=== PATIENT | female | born 1950 | race Caucasian/White ===

== ENCOUNTER 2018-09-02 07:38 | Day surgery (SDC) | payer MEDICARE, OTHER ==
[~2018-09-02] VITALS: Ht 170.2 cm; Wt 84.4 kg
[~2018-09-02 07:38] MED LIST: ALENDRONATE SOD70 MG PO; ASPIRIN EC81 MG PO; BIOTIN5000 MCG PO; CALCIUM 1,0001 EACH PO; CALCIUM500 MG PO; CELEBREX200 MG PO; CENTRUM SILVER1 EAC3 PO; DAILY VITAMIN1 EAC2 PO; DESMOPRESSIN A0.2 MG PO; FISH OIL 1,0001 EAC1 PO; GLUCOSAMINE CO1 EAC1 PO; GLUCOSAMINE H1500 MG PO; IPRATROPIUM BRO30 ML NAS; OMEGA 3 FISH O1 EACH PO; PANTOPRAZOLE SO40 MG PO; PHILLIPS' COLO1 EACH PO; PROBIOTIC1 EAC1 PO; PROTONIX40 MG PO; TIMOPTIC10 ML; VAGIFEM10 MCG VAGINAL; VITAMIN D1000 UNI1 PO; VITAMIN D5000 UNIT PO; [UNRECOGNIZED DRUG - OTHER] MISC
--- NOTE | 2018-09-02 09:34 | NUR ---
09/02/18 0934 Sheets,Libby 0920 PT ARRIVED TO PACU ON 3L VIA NC, PT ASLEEP OFF AND ON. PT WAKES TO VERBAL STIMULI. PT DENIES NAUSEA AND PAIN. 929 PT WOKE TO VERBAL STIMULI AND IS REORIENTED TO PACU, PT TALKING TO RN THEN BACK TO SLEEP. RESP EVEN AND UNLABORED AND SNORING NOTED. 933 O2 REMOVED.
--- NOTE | 2018-09-03 06:01 | OR ---
[facility] [address], [place] [address] Signed DATE OF OPERATION: SURGEON: Ileana Rosario MD PREOPERATIVE DIAGNOSES: 1. Personal history of colonic polyps. 2. Diverticulosis. 3. PPH stapled hemorrhoidal pexy. 4. Internal and external hemorrhoids. POSTOPERATIVE DIAGNOSES: 1. Minimal internal hemorrhoids. 2. Anahtby-lz-cxdmjwpv external hemorrhoids. 3. Minimal sigmoid and right diverticulosis. 4. 3 mm polyps x2 at 8 cm. PROCEDURE PERFORMED: Colonoscopy with cold biopsy. ESTIMATED BLOOD LOSS: None. INDICATIONS: Keron is a 68-year-old female, who comes to us for a 5-year followup colonoscopy. She has a personal history of colonic polyps. We know she has diverticulosis along with some minimal internal and external hemorrhoids. She has been through the PPH stapled hemorrhoidal pexy. In the meantime, she is retired and says she is doing great. She has no lower GI complaints. There is no family history of colon cancer or polyps. I gave her a pamphlet on colonoscopy in the office and we reviewed that together along with the risks including, but not limited to gas, bloating, crampy abdominal pain, bleeding, perforation, requiring surgery, and missed diagnosis. We also discussed the need for IV conscious sedation. She had expressed understanding and wished to proceed. DESCRIPTION OF PROCEDURE: Keron was taken into our endoscopy suite and placed in the left lateral decubitus position. She was given IV sedation with 5 mg of Versed and 100 mcg of fentanyl. A digital rectal exam was performed and she does have some minimal to moderate external hemorrhoids. She has good sphincter tone. The adult colonoscope was introduced and advanced all around into the cecum under direct visualization of camera without difficulty. Her prep was quite excellent. The scope was slowly withdrawn. We saw just a few diverticula in the right colon and sigmoid colon. There were few in number Electronically Signed By: ILEANA ROSARIO MD 09/03/18 0601 PATIENT NAME: KERON SILVA OPERATIVE REPORT DATE OF : 50 REPORT #: [id number] PHYSICIAN: ILEANA ROSARIO MD PCP: ALEXI ZARAGOZA REPORT IS CONFIDENTIAL AND NOT TO BE RELEASED WITHOUT AUTHORIZATION [facility] [address], [place] [address] Signed moderate in size and scattered about. Once in the rectum she had just a couple of tiny polyps. We removed the cold biopsy forceps. Upon retroflexion of scope, we can see a circular scar just above the anal canal from the PPH staple hemorrhoidal pexy. The internal hemorrhoids are quite minimal. After this, the gas was suctioned out. The colonoscope was removed. Keron tolerated the procedure quite well. RECOMMENDATIONS: I will see Keron back in my office in 7 to 14 days to review her results. I suspect she will stay on the 5-year rotation. MD ATILIO Elena/NATASHAL /[id number] cc: Alexi Rosario MD Copies: ALEXI ZARAGOZA ANDREW L MD ~ Electronically Signed By: ILEANA ROSARIO MD 09/03/18 0601 PATIENT NAME: KERON SILVA OPERATIVE REPORT DATE OF : 50 REPORT #: [id number] PHYSICIAN: ILEANA ROSARIO MD PCP: ALEXI ZARAGOZA REPORT IS CONFIDENTIAL AND NOT TO BE RELEASED WITHOUT AUTHORIZATION
== END 2018-09-02 10:04 | disposition home or self-care (01) ==
LOC: OPS 07:38 → DS 07:43 → OPS 09:00
PROVIDERS: Colon & Rectal Surgery
PROC: 0DBP8ZZ Excision of Rectum, Via Natural or Artificial Opening Endoscopic (ICD-10-PCS; principal; 2018-09-02 09:00)
DX: Z12.11 Encounter for screening for malignant neoplasm of colon (principal); K62.1 Rectal polyp; K64.8 Other hemorrhoids; K64.4 Residual hemorrhoidal skin tags; K57.30 Diverticulosis of large intestine without perforation or abscess without bleeding; K63.5 Polyp of colon; Z86.010 Personal history of colon polyps; Z79.899 Other long term (current) drug therapy
CPT/HCPCS: 99153; G0500; J2250; J3010; J7120

== ENCOUNTER 2019-11-18 14:22 | Emergency (ER) | payer MEDICARE, OTHER ==
[~2019-11-18] VITALS: Ht 170.2 cm; Wt 81.7 kg
--- OUTSIDE RECORDS SUMMARY | ~2019-11-18 | XMS | Clinical Summary ---
Demographics + + + | Address | [address] | | | [place] [address] | + + + | Home Phone | | + + + | Preferred Language | Unknown | + + + | Marital Status | | + + + | Yazidi Affiliation | Unknown | + + + | Race | White | + + + | Ethnic Group | Not or | + + + Author + + + | Author | [facility] | + + + | Organization | [facility] | + + + | Address | Unknown | + + + | Phone | Unavailable | + + + Support + + + + + | Name | Relationship | Address | Phone | + + + + + | Bruce Moscoso | ECON | [address] | | | | | [place] | | | | | [address] | | + + + + + Care Team Providers + +------+ + | Care Chief Payroll Clerk Name | Role | Phone | + +------+ + | Alvin Alejandre MD | PCP | | + +------+ + Source Comments [facility]NALI is fully live on both [facility] and [facility]Patient.[facility] Allergies + + + + + + | Active Allergy | Reactions | Severity | Noted | Comments | | | | | Date | | + + + + + + | Sulfa (Sulfonamide | Unknown | | 08/21/19 | | | Antibiotics) | | | 18 | | + + + + + + Medications + + + +---------+------+------+-------+ | Medication | Sig | Dispensed | Refills | Star | End | Statu | | | | | | t | Date | s | | | | | | Date | | | + + + +---------+------+------+-------+ | pantoprazole 40 mg | Take 40 mg by mouth | | 3 | 04/1 | | Activ | | oral tablet,delayed | before breakfast. | | | 820 | | e | | release (DR/EC) | | | | 18 | | | + + + +---------+------+------+-------+ | ipratropium 0.03 % | | | 0 | 02/1 | | Activ | | nasal | | | | 320 | | e | | spray,non-aerosol | | | | 18 | | | + + + +---------+------+------+-------+ | timolol once daily | Instill 1 drop into | | 0 | | | Activ | | 0.5 % ophthalmic | the right eye once | | | | | e | | (eye) drops, once | daily. | | | | | | | daily | | | | | | | + + + +---------+------+------+-------+ | celecoxib 200 mg | TK 1 C PO D | | 0 | 06/0 | | Activ | | oral capsule | | | | 5/20 | | e | | | | | | 19 | | | + + + +---------+------+------+-------+ | BIOTIN ORAL | Take by mouth. | | 0 | | | Activ | | | | | | | | e | + + + +---------+------+------+-------+ | MEDICATION | Indications: | | 0 | | | Activ | | HELPIndications: | calcium, fish oil, | | | | | e | | calcium, fish oil, | lutein & zeaxanthin, | | | | | | | lutein & zeaxanthin, | Vitamin D, MV | | | | | | | Vitamin D, MV | | | | | | | + + + +---------+------+------+-------+ Active Problems + + + | Problem | Noted Date | + + + | PCO (posterior capsular opacification), right | 10/14/2018 | + + + + + | Last Assessment & Plan: Likely visually significant and | | primary factor in reduced VA-Can follow up with Dr. 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 | + + + + + | History of vitrectomy | 08/20/2017 | + + + + + | Overview: Hx of -PPV OD 03/26/2016 and -PPV OD with phaco | | 06/11/2016 for macular hole Last Assessment & Plan: Hx of -PPV | | OD 03/26/2016 and -PPV OD with phaco 06/11/2016 for macular | | holeStill with central area of distortion, but good VAHole closed | | on OCT macula todayRecommend observation p reassured excellent | | result with good vision which should continue to improve | + + Family History + + +------+ + | Medical History | Relation | Name | Comments | + + +------+ + | Cataracts | Father | | | + + +------+ + | Heart Disease | Father | | | + + +------+ + | Breast Cancer | Mother | | | + + +------+ + | Cancer | Mother | | | + + +------+ + | Amblyopia | Neg Hx | | | + + +------+ + | Blindness | Neg Hx | | | + + +------+ + | Diabetes | Neg Hx | | | + + +------+ + | Glaucoma | Neg Hx | | | + + +------+ + | Macular degeneration | Neg Hx | | | + + +------+ + | Retinal detachment | Neg Hx | | | + + +------+ + | Retinitis pigmentosa | Neg Hx | | | + + +------+ + | Strabismus | Neg Hx | | | + + +------+ + + +------+--------+ + | Relation | Name | Status | Comments | + +------+--------+ + | Father | | | | + +------+--------+ + | Mother | | | | + +------+--------+ + Social History + +-------+ +--------+------+ | Tobacco Use | Types | Packs/Day | Years | Date | | | | | Used | | + +-------+ +--------+------+ | Never Smoker | | | | | + +-------+ +--------+------+ + +---+---+---+ | Smokeless Tobacco: | | | | | Never Used | | | | + +---+---+---+ + + + | Sex Assigned at | Date Recorded | | | | + + + | Not on file | | + + + + + + + | Job Start Date | Occupation | Industry | + + + + | Not on file | Not on file | Not on file | + + + + + + + + | Travel History | Travel Start | Travel End | + + + + + + | No recent travel history available. | + + Last Filed Vital Signs Not on file Plan of Treatment + + + + + | Health Maintenance | Due Date | Last Done | Comments | + + + + + | Pneumococcal | | | | | vaccination (1 of 2 | 6 | | | | - PCV13) | | | | + + + + + | Influenza (Flu) | | | | | vaccination (#1) | 9 | | | + + + + + Results Not on filefrom Last 3 Months Insurance + +--------+ +--------+ + +--------+ | Payer | Benefi | Subscriber | Effect | Phone | Address | Type | | | t Plan | ID | latonya | | | | | | / | | Dates | | | | | | Group | | | | | | + +--------+ +--------+ + +--------+ | MEDICARE | MEDICA | xxxxxxxxxxx | 07/15/19 | [phone] | [address] | [address] | | | RE A & | | 16-Pre | | [phone] | | | [address] | | sent | | [place] | | | | | | | | [id number] | | + +--------+ +--------+ + +--------+ | [employer]A MEDICARE | MODA | xxxxxxxxx | 04/15/19 | [phone] | [address] | POS | | SUPPLEMENT | MEDICA | | 17-Pre | 4 | [id number] | | | | RE | | sent | | [place], | | | | [place] | | | | [place] [address] | | | | MENT | | | | | | + +--------+ +--------+ + +--------+ + +--------+ +--------+ + + | Guarantor Name | Accoun | Relation to | Date | Phone | Billing Address | | | t Type | Patient | of | | | | | | | | | | + +--------+ +--------+ + + | Darline Moscoso | Person | Self | [birth year] | [address] | | | al/[place] | | 1950 | [phone] | [place] [address] | | | renetta | | | 1 (Home) | | + +--------+ +--------+ + +"
--- OUTSIDE RECORDS SUMMARY | ~2019-11-18 | XMS | Encounter Summary ---
Demographics + + + | Address | [address] | | | [place] [address] | + + + | Home Phone | | + + + | Preferred Language | Unknown | + + + | Marital Status | | + + + | Cheondoism Affiliation | Unknown | + + + | Race | Unknown | + + + | Ethnic Group | Unknown | + + + Author + + + | Author | [facility] | | | and Bhupinderana | + + + | Organization | [facility] | | | and Bhupinderana | + + + | Address | Unknown | + + + | Phone | Unavailable | + + + Support + + + + + | Name | Relationship | Address | Phone | + + + + + | Bruce Moscoso | ALEXANDER | [address] | | | | | [place], [place] | | | | | [address] | | + + + + + Care Team Providers + +------+ + | Care [employer] Professor Name | Role | Phone | + +------+ + | Gray Wesley MD | PCP | | + +------+ + Reason for Visit Auth/Cert +--------+--------+ + + + + | Status | Reason | Specialty | Diagnoses / | Referred By | Referred To | | | | | Procedures | Contact | Contact | +--------+--------+ + + + + | | | | Diagnoses | | Ninoska | | | | | Unilateral | | Samson Warner MD | | | | | 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 | | [address] [place] | | | | | is, right | | [place] | | | | | knee | | [address] | | | | | Procedures | | Phone: | | | | | PA TOTAL | | [phone] | | | | | KNEE | | Fax: | | | | | ARTHROPLASTY | | [phone] | | | | | Right | | | | | | | total knee | | | | | | | arthroplasty | | | +--------+--------+ + + + + Encounter Details +--------+ + + + + | Date | Type | Department | Care Team | Description | +--------+ + + + + | 11/02/ | Anesthesia | [facility] | Hemant Amador, | | | 2019 | Event | [facility] | [address] | | | | | [address] | [place] | | | | | [place] | [id number] | | | | | [address] | | | | | | [phone] | Keenan Gabriel | | | | | | MD Letty [address] | | | | | | [address] | | | | | | [place] [address] | | | | | | [phone] | | | | | | | | +--------+ + + + + Anesthesia Record + + + + + | Procedure Name | Responsible | Anesthesia Start | Anesthesia Stop Time | | | Anesthesiologist | Time | | + + + + + | Right total knee | Hemant Amador MD | 11/03/19 1010 | 11/03/19 1152 | | arthroplasty (Right | | | | | Knee) | | | | + + + + + +----+---+ + + | Da | T | Event | Comment | | te | i | | | | | m | | | | | e | | | +----+---+ + + | 07 | 0 | | | | /2 | 9 | | | | 1/ | 4 | | | | 20 | 0 | | | | 20 | | | | +----+---+ + + | | 0 | An Checkout | Pre-use anesthesia machine/equipment checkout. | | | 9 | | | | | 5 | | | | | 7 | | | +----+---+ + + | | 0 | Out of OR | | | | 9 | Device | | | | 5 | Start | | | | 7 | | | +----+---+ + + | | 0 | Antibiotic | | | | 9 | Given | | | | 5 | | | | | 7 | | | +----+---+ + + | | 0 | Pre-Procedu | | | | 9 | ral Timeout | | | | 5 | Completed | | | | 7 | | | +----+---+ + + | | 0 | Block Start | | | | 9 | | | | | 5 | | | | | 7 | | | +----+---+ + + | | 1 | AN Block | | | | 0 | End | | | | 0 | | | | | 5 | | | +----+---+ + + | | 1 | Out of OR | | | | 0 | Device Stop | | | | 0 | | | | | 5 | | | +----+---+ + + | | 1 | An Start | Reassessment prior to anesthesia induction/procedure. | | | 0 | | | | | 1 | | | | | 0 | | | +----+---+ + + | | 1 | Preoxygenat | | | | 0 | ed | | | | 1 | | | | | 5 | | | +----+---+ + + | | 1 | An | | | | 0 | Induction | | | | 1 | | | | | 7 | | | +----+---+ + + | | 1 | An | | | | 0 | Intubation | | | | 1 | | | | | 8 | | | +----+---+ + + | | 1 | Pre-Procedu | | | | 0 | ral Timeout | | | | 3 | Completed | | | | 3 | | | +----+---+ + + | | 1 | [place] | | | | 0 | 43-degrees | | | | 3 | | | | | 3 | | | +----+---+ + + | | 1 | An Tourn | | | | 0 | Inflated | | | | 3 | | | | | 3 | | | +----+---+ + + | | 1 | First | | | | 0 | Inc/Proc St | | | | 3 | | | | | 3 | | | +----+---+ + + | | 1 | Intra-op | Discussed during handoff of patient care: - Preop evaluation | | | 1 | Handoff | including the problem list with anesthesia concerns - Antibiotic | | | 2 | Note | plan and documentation - Postop plan and pain management - Postop | | | 1 | | orders placed - Narcotic documentation: hydromorphone 1mg handed | | | | | off to Dr. Amador | +----+---+ + + | | 1 | An Tourn | | | | 1 | Deflated | | | | 3 | | | | | 1 | | | +----+---+ + + | | 1 | [place] off | | | | 1 | | | | | 4 | | | | | 2 | | | +----+---+ + + | | 1 | Breathing | | | | 1 | Spontaneous | | | | 4 | ly | | | | 2 | | | +----+---+ + + | | 1 | Extubation/ | | | | 1 | Airway LDA | | | | 4 | Removal | | | | 8 | | | +----+---+ + + | | 1 | an stop | | | | 1 | data | | | | 4 | | | | | 8 | | | +----+---+ + + | | 1 | An Stop | Patient handed off to recovery nurse. | | | 5 | | | | | 2 | | | +----+---+ + + +------+ | Meds | +------+ + + + | Name | Total | + + + | midazolam | 2 mg | + + + | fentaNYL injection (2 mL) | 100 mcg | + + + | ropivacaine 0.5% | 15 mL | + + + | lidocaine 2% | 5 mL | + + + | lidocaine 2% | 85 mg | + + + | propofol (DIPRIVAN) injection | 170 mg | | (bolus) (20 mL) | | + + + | dexamethasone | 10 mg | + + + | ondansetron | 4 mg | + + + | HYDROmorphone | 1 mg | + + + | tranexamic acid | 1,000 mg | + + + | ceFAZolin (ANCEF, KEFZOL) 100 | 2 g | | mg/mL IV Push syringe 2 g | | + + + | lactated ringers (LR) infusion | 1,000 mL | + + + + + | Name | + + | N2O Flow Rate (L/Min) | + + | O2 Flow Rate (L/Min) | + + | Insp O2 | + + | Exp SEV | + + | Air Flow Rate (L/Min) | + + + + | No blood administrations on file. | + + +--------+ + + + | Type | Details | Placement | Removal | +--------+ + + + | Periph | 11/03/19; 908; Right; Distal, | 11/03/19 0909 by | 11/04/19 1315 by | | eral | Posterior (dorsal); Forearm; | Jason Lugo RN | Cecille Obregon RN | | IV | [id number] catheter system; | | | | | 18 gauge; no longer indicated; | | | | | short term use; 11/04/19; 1315 | | | +--------+ + + + | Airway | Placement Date: 11/03/19; | 11/03/19 1018 by Tor | 11/03/19 1148 by Tor | | | Placement Time: 1018 (created via | Letty Gabriel MD | Letty Gabriel MD | | | procedure documentation); Mask | | | | | Ventilation: N/A; Attempts: 1; | | | | | Airway Type: laryngeal mask; | | | | | Size: 3; Trauma: none; Placement | | | | | Check: exhaled CO2 detection | | | | | device; Removal Date: 11/03/19; | | | | | Removal Time: 114; Additional | | | | | Comments: Kyle Rojas - MS4 | | | +--------+ + + + | Wound | 11/03/19; 1042; Incision; Right; | 11/03/19 1042 by | 11/04/19 1315 by | | | knee; Healing; 11/04/19; 1315 | Norma Rooney RN | Cecille Obregon RN | +--------+ + + + documented in this encounter Social History + +-------+ +--------+------+ | Tobacco Use | Types | Packs/Day | Years | Date | | | | | Used | | + +-------+ +--------+------+ | Never Smoker | | | | | + +-------+ +--------+------+ + +---+---+---+ | Smokeless Tobacco: | | | | | Never Used | | | | + +---+---+---+ + + +---------+ + | Alcohol Use | Drinks/Week | oz/Week | Comments | + + +---------+ + | Yes | 1 Glasses of wine | 2.0 | | | | 1 Shots of liquor | | | + + +---------+ + + + + | Sex Assigned at | Date Recorded | | | | + + + | Not on file | | + + + documented as of this encounter Last Filed Vital Signs + +---------+ + + | Vital Sign | Reading | Time Taken | Comments | + +---------+ + + | Blood Pressure | 150/76 | 11/03/2019 10:00 AM | | | | | PDT | | + +---------+ + + | Pulse | - | - | | + +---------+ + + | Temperature | - | - | | + +---------+ + + | Respiratory Rate | - | - | | + +---------+ + + | Oxygen Saturation | 95% | 11/03/2019 10:05 AM | | | | | PDT | | + +---------+ + + | Inhaled Oxygen | - | - | | | Concentration | | | | + +---------+ + + | Weight | - | - | | + +---------+ + + | Height | - | - | | + +---------+ + + | Body Mass Index | - | - | | + +---------+ + + documented in this encounter OR Notes Anesthesia Postprocedure Evaluation - Keenan Gabriel MD - 11/03/2019 3:52 PM PDTForm atting of this note might be different from the original. ANESTHESIA POSTANESTHESIA EVALUATION Darline Moscoso 69 y.o. female 1950 [id number] Procedure(s) Right total knee arthroplasty (Right Knee) Cooperates? Yes Mental Status Performs simple tasks. Respiratory Satisfactory - Airway patent (self maintained). Cardiovascular Satisfactory - Blood pressure and heart rate acceptable Temperature Satisfactory Pain Satisfactory N/V Control Satisfactory Hydration Satisfactory - No signs of dehydration Adverse Events ADVERSE EVENTS: No adverse events Vitals Value Taken Time Temp 36.8 C (98.2 F) 11/03/19 1150 Pulse 69 11/03/19 1345 Resp 16 11/03/19 1315 BP 151/67 11/03/19 1345 Arterial Line BP Arterial Line BP 2 SpO2 96 % 11/03/19 1345 Electronically signed by Keenan Gabriel MD 11/03/2019 3:52 PM PDT [facility] nesthesia Procedure Michael - Keenan Gabriel MD - 11/03/2019 10: 50 AM PDTAssociated Order(s): AirwayAnesthesia Airway Placement 11/03/2019 10:18 AM Preprocedure check: patient identified, oxygen, airway assessed, patient reassessment prior to induction, airway equipment checked and suction Rapid Sequence Induction: no Mask ventilation: N/A Attempts: 1 Airway type: laryngeal mask Size: 3 Route, reference point: center of mouth Tube secured with: adhesive tape Trauma: none Tube placement verification: carbon dioxide detection Performing provider: Keenan Gabriel MD Authorizing provider: Keenan Gabriel MD Comments: Kyle LIMA Please see intraoperative grid for any additional medication documentation. nesthesia Proced ure Notes - Keenan Gabriel MD - 11/03/2019 10:37 AM PDTAssociated Order(s): Nerve Bloc kPerineural Procedure Note 11/03/2019 10:05 AM Nerve block: adductor canal-femoral Laterality: right Continuous block with catheter: No Provider requested procedure: Dr. Xiao Indication: postoperative analgesia Preprocedure check: patient identified, procedure and rescue equipment checked, preevaluati on including airway assessment complete, risks/benefits discussed, consent obtained, timeout performed, reassessment prior to procedure and monitors applied Patient position: supine Preparation: chlorhexidine/isopropyl alcohol, 1% lidocaine infiltration Introducer used: no Local anesthetic infiltration volume in ml: 2 mL Technique: ultrasound Radiology image stored in patient's chart: ultrasound Needle: stimulating Needle size: 22 g Needle length: 4 in Medication administered through: needle Negative findings: no blood aspirated and no paresthesia Total volume of local anesthetic solution administered: 20 mL Attempts: 1 Ease of procedure: easy Comments: SpO2, NBP monitored during procedure and recorded in anesthesia record. Ultrasou nd used to identify femoral artery and femoral nerve. Femoral artery traced distally to mid thigh. Under ultrasound guidance, a 21 gauge needle was inserted and placed in close proxim ity to the branches of the femoral nerve within the adductor canal lateral to the femoral ar margaret. Ultrasound was also used to visualize the spread of the anesthetic in close proximity to the nerves being blocked with needle tip visualized throughout. Local anesthetic was in jected in 5 ml increments within the adductor canal with intermittent negative aspiration an d no paresthesias. The anatomy appeared normal, and there were no apparent abnormal patholog ical findings. A permanent ultrasound image was saved in the patient's record. Please see anesthesia record or flowsheet for vital sign documentation and see anesthesia r ecord or MAR for additional medication documentation. Performing provider: Keenan Gabriel MD Authorizing provider: Keenan Gabriel MD Email Deployment Specialist: Kyle Rojas - MS4 nesthesia Prepro cedure Evaluation - Keenan Gabriel MD - 11/02/2019 1:09 PM PDT ANESTHESIA PREANESTHESIA EVALUATION Darline Moscoso 69 y.o. female 1950 [id number] Procedure(s): Right total knee arthroplasty (Right Knee) Medical,anesthesia, drug, allergy histories reviewed, NPO status verified. ECG reviewed. Labs reviewed. Review of Systems / Med History Anesthesia History (+) PONV.(-) difficult intubation, malignant hyperthermia . Cardiovascular (-) coronary artery disease. . Pulmonary No acute pulmonary concerns. (-) Chronic Obstructive Pulmonary Disease.(+) obstructive sleep apnea.(+) Sleep apnea histo ry/interventions: known and CPAP.(-) asthma. Gastrointestinal/Hepatic (+) hypercholesterolemia. Renal (-) end-stage renal disease. Neuromuscular (+) back pain. Physical Exam Airway MP II, Mouth opening >2 FB. Neck: full ROM, Dental Grossly normal except where noted below. CV Rhythm regular. Rate Normal. (-) murmur. Pulm Clear to auscultation bilaterally. Neuro grossly normal. Anesthesia Plan ASA: 2 Type: General. Induction: Intravenous. Potential problems: None anticipated. Monitors: Standard ASA monitors. Postop Pain Management: Peripheral Nerve Block. Consent statement: Anesthetic plan, alternatives, risks and benefits discussed with patient. infection, nausea , pain, perioperative CV events, respiratory events, sore throat, failed or inadequate block , bleeding, nerve damage Consenting person understands and agrees to proceed. PARQ. Multimodal pain control including PO acetaminophen unless there is an allergy or contraindi cation. PARQ for adductor canal nerve block under ultrasound guidance for post-op pain contr ol as requested by surgeon. Pt agrees to GA/LMA/PNB. . Electronically Signed by: Keenan Gabriel MD ESig date/time: 11/03/2019 9:03 AM PDT documented in jess s encounter Miscellaneous Notes Anesthesia Post-op Handoff - Hemant Amador MD - 11/03/2019 11:51 AM PDTFormatting of thi s note might be different from the original. ANESTHESIA HANDOFF NOTE Darline Moscoso 69 y.o. female 1950 [id number] Right total knee arthroplasty (Right Knee) HANDOFF NOTE Handoff Protocol Used: post-procedure handoff checklist completed The following were completed during the transfer of care: 1. Identification of patient 2. Identification of responsible practitioner (primary service) 3. Discussion of pertinent medical history 4. Discussion of the surgical/procedure course (procedure, reason for surgery, procedure pe rformed) 5. Intraoperative anesthetic management and issues/concerns 6. Expectations/plans for the early post-procedure period 7. Opportunity for questions and acknowledgement of understanding of report from receiving team Patient Location: Phase I Condition: alert and sedated Airway/O2: no supplemental O2 Multimodal analgesia: multimodal analgesia used between 6 hours prior to anesthesia start t o PACU discharge Two or more АЛЕКСАНДР mitigation strategies used: perioperative obstructive sleep apnea intervent ions applied The significant anesthesia concerns and VS in Epic were reviewed with the receiving team. Hemant Amador MD 11/03/2019 11:51 AM PDT [facility] Hmeant Amador MD at 10/14 11:51 AM PDTdocumented in this encounter Plan of Treatment Not on filedocumented as of this encounter Procedures + +--------+ + + + | Procedure Name | Priori | Date/Time | Associated Diagnosis | Comments | | | ty | | | | + +--------+ + + + | ANE AIRWAY NOTE | Routin | 11/03/2019 | | Results for this | | | e | 10:50 AM | | procedure are in the | | | | PDT | | results section. | + +--------+ + + + | ANE NERVE BLOCK | Routin | 11/03/2019 | | Results for this | | CATHETER NOTE | e | 10:37 AM | | procedure are in the | | | | PDT | | results section. | + +--------+ + + + documented in this encounter Results Airway (11/03/2019 10:50 AM PDT) + + + | Narrative | Performed At | + + + | Keenan Gabriel MD 11/03/2019 10:51 AM Anesthesia Airway | | | Placement 11/03/2019 10:18 AM Preprocedure check: patient | | | identified, oxygen, airway assessed, patient reassessment prior to | | | induction, airway equipment checked and suction Rapid Sequence | | | Induction: no Mask ventilation: N/A Attempts: 1 Airway type: | | | laryngeal mask Size: 3 Route, reference point: center of mouth Tube | | | secured with: adhesive tape Trauma: none Tube placement | | | verification: carbon dioxide detection Performing provider: Keenan | | | Letty Gabriel MD Authorizing provider: Keenan Gabriel MD | | | Comments: Kyle Macedo MS4 Please see intraoperative grid | | | for any additional medication documentation. | | + + + Nerve Block (11/03/2019 10:37 AM PDT) + + + | Narrative | Performed At | + + + | Keenan Gabriel MD 11/03/2019 10:51 AM Perineural | | | Procedure Note 11/03/2019 10:05 AM Nerve block: adductor | | | canal-femoral Laterality: right Continuous block with catheter: No | | | Provider requested procedure: Dr. Xiao Indication: postoperative | | | analgesia Preprocedure check: patient identified, procedure and | | | rescue equipment checked, preevaluation including airway assessment | | | complete, risks/benefits discussed, consent obtained, timeout | | | performed, reassessment prior to procedure and monitors applied | | | Patient position: supine Preparation: chlorhexidine/isopropyl | | | alcohol, 1% lidocaine infiltration Introducer used: no Local | | | anesthetic infiltration volume in ml: 2 mL Technique: ultrasound | | | Radiology image stored in patient's chart: ultrasound Needle: | | | stimulating Needle size: 22 g Needle length: 4 in Medication | | | administered through: needle Negative findings: no blood aspirated | | | and no paresthesia Total volume of local anesthetic solution | | | administered: 20 mL Attempts: 1 Ease of procedure: easy | | | Comments: SpO2, NBP monitored during procedure and recorded in | | | anesthesia record. Ultrasound used to identify femoral artery and | | | femoral nerve. Femoral artery traced distally to mid thigh. Under | | | ultrasound guidance, a 21 gauge needle was inserted and placed in | | | close proximity to the branches of the femoral nerve within the | | | adductor canal lateral to the femoral artery. Ultrasound was also | | | used to visualize the spread of the anesthetic in close proximity to | | | the nerves being blocked with needle tip visualized throughout. | | | Local anesthetic was injected in 5 ml increments within the | | | adductor canal with intermittent negative aspiration and no | | | paresthesias. The anatomy appeared normal, and there were no apparent | | | abnormal pathological findings. A permanent ultrasound image was | | | saved in the patient's record. Please see anesthesia | | | record or flowsheet for vital sign documentation and see anesthesia | | | record or MAR for additional medication documentation. | | | Performing provider: Keenan Gabriel MD Authorizing provider: Keenan | | | Letty Gabriel MD Email Deployment Specialist: Kyle Rojas - MS4 | | + + + documented in this encounter Visit Diagnoses Not on filedocumented in this encounter Administered Medications + +--------+ +------+------+------+ | Medication Order | MAR | Action | Dose | Rate | Site | | | Action | Date | | | | + +--------+ +------+------+------+ | ceFAZolin (ANCEF, KEFZOL) 100 | Given | 11/03/19 | 2 g | | | | mg/mL IV Push syringe 2 g 2 g, | | 20 10:25 | | | | | Intravenous, Prior to Incision, | | AM PDT | | | | | Starting [facility] 11/03/19 at 0422, For | | | | | | | 1 dose, Give IV Push over 3-5 | | | | | | | minutes., Pre-op, Indications: | | | | | | | Surgical Prophylaxis | | | | | | + +--------+ +------+------+------+ +---+---+ | | | +---+---+ + +-------+ +-------+---+---+ | dexamethasone (PF) 10 mg/mL | Given | 11/03/19 | 10 mg | | | | injection Intravenous, PRN, | | 20 10:24 | | | | | Starting [facility] 11/03/19 at 1024, | | AM PDT | | | | | Anesthesia Intra-op | | | | | | + +-------+ +-------+---+---+ +---+---+ | | | +---+---+ + +-------+ +--------+---+---+ | fentaNYL (PF) injection | Given | 11/03/19 | 75 mcg | | | | Intravenous, PRN, Starting Sat | | 20 10:33 | | | | | 11/03/19 at 0957, Anesthesia | | AM PDT | | | | | Intra-op | | | | | | + +-------+ +--------+---+---+ +-------+ +--------+---+---+ | Given | 11/03/19 | 25 mcg | | | | | 20 9:57 | | | | | | AM PDT | | | | +-------+ +--------+---+---+ +---+---+ | | | +---+---+ + +-------+ +------+---+---+ | HYDROmorphone (DILAUDID) 2 | Given | 11/03/19 | 1 mg | | | | mg/mL injection Intravenous, | | 20 10:48 | | | | | PRN, Starting Sat11/03/19 at | | AM PDT | | | | | 1048, Anesthesia Intra-op | | | | | | + +-------+ +------+---+---+ +---+---+ | | | +---+---+ + + + +---+---+---+ | lactated ringers (LR) infusion | Continue | 11/03/19 | | | | | at 10-100 mL/hr, Intravenous, | d by | 20 9:57 | | | | | CONTINUOUS, Starting 11/03/19 | Anesthes | AM PDT | | | | | at 0900, TKO. Use this instead of | ia | | | | | | NS unless dialysis patient., | | | | | | | Pre-op | | | | | | + + + +---+---+---+ +---------+ +---+-------+---+ | New Bag | 11/03/19 | | 100 | | | | 20 8:49 | | mL/hr | | | | AM PDT | | | | +---------+ +---+-------+---+ +---+---+ | | | +---+---+ + +-------+ +-------+---+---+ | lidocaine (PF) 2% injection | Given | 11/03/19 | 5 mLs | | | | PERINEURAL, PRN, Starting Tue | | 20 10:05 | | | | | 11/03/19 at 1005, Anesthesia | | AM PDT | | | | | Intra-op | | | | | | + +-------+ +-------+---+---+ +---+---+ | | | +---+---+ + +-------+ +-------+---+---+ | lidocaine (PF) 2% injection | Given | 11/03/19 | 15 mg | | | | Intravenous, PRN, Starting Tue | | 20 10:33 | | | | | 11/03/19 at 1017, Anesthesia | | AM PDT | | | | | Intra-op | | | | | | + +-------+ +-------+---+---+ +-------+ +-------+---+---+ | Given | 11/03/19 | 70 mg | | | | | 20 10:17 | | | | | | AM PDT | | | | +-------+ +-------+---+---+ +---+---+ | | | +---+---+ + +-------+ +------+---+---+ | midazolam (VERSED) 1 mg/mL | Given | 11/03/19 | 2 mg | | | | injection Intravenous, PRN, | | 20 9:57 | | | | | Starting 11/03/19 at 0957, | | AM PDT | | | | | Anesthesia Intra-op | | | | | | + +-------+ +------+---+---+ +---+---+ | | | +---+---+ + +-------+ +------+---+---+ | ondansetron (ZOFRAN) injection | Given | 11/03/19 | 4 mg | | | | Intravenous, PRN, Starting Tue | | 20 10:24 | | | | | 11/03/19 at 1024, Anesthesia | | AM PDT | | | | | Intra-op | | | | | | + +-------+ +------+---+---+ +---+---+ | | | +---+---+ + +-------+ +-------+---+---+ | propofol (DIPRIVAN) injection | Given | 11/03/19 | 30 mg | | | | Intravenous, PRN, Starting Sat | | 20 10:33 | | | | | 11/03/19 at 1017, Anesthesia | | AM PDT | | | | | Intra-op | | | | | | + +-------+ +-------+---+---+ +-------+ +--------+---+---+ | Given | 11/03/19 | 140 mg | | | | | 20 10:17 | | | | | | AM PDT | | | | +-------+ +--------+---+---+ +---+---+ | | | +---+---+ + +-------+ +--------+---+---+ | ropivacaine (NAROPIN) 5 mg/mL | Given | 11/03/19 | 15 mLs | | | | (0.5%) injection PERINEURAL, | | 20 10:05 | | | | | PRN, Starting Sat11/03/19 at | | AM PDT | | | | | 1005, Anesthesia Intra-op | | | | | | + +-------+ +--------+---+---+ +---+---+ | | | +---+---+ + +-------+ + +---+---+ | tranexamic acid (CYKLOKAPRON) | Given | 11/03/19 | 1,000 mg | | | | injection Intravenous, | | 20 10:25 | | | | | Administer over 15 Minutes, YULIYA, | | AM PDT | | | | | Starting 11/03/19 at 1025, | | | | | | | Anesthesia Intra-op | | | | | | + +-------+ + +---+---+ +---+---+ | | | +---+---+ documented in this encounter"
--- OUTSIDE RECORDS SUMMARY | ~2019-11-18 | XMS | Encounter Summary ---
Demographics + + + | Address | [address] | | | [place] [address] | + + + | Home Phone | | + + + | Preferred Language | Unknown | + + + | Marital Status | | + + + | Methodist Affiliation | Unknown | + + + | Race | White | + + + | Ethnic Group | Not or | + + + Author + + + | Author | [facility] | + + + | Organization | [facility] | + + + | Address | Unknown | + + + | Phone | Unavailable | + + + Support + + + + + | Name | Relationship | Address | Phone | + + + + + | Bruce Moscoso | ALEXANDER | [address] | | | | | [place] | | | | | [address] | | + + + + + Care Team Providers + +------+ + | Care Account Information Clerk Name | Role | Phone | + +------+ + | Alvin Alejandre MD | PCP | | + +------+ + Reason for Visit + + + | Reason | Comments | + + + | New patient | | | consultation | | + + + | Self-referred For | | | Second Opinion | | + + + | Macular hole | | + + + Benefits Check (Routine) +--------+--------+ + + + + | Status | Reason | Specialty | Diagnoses / | Referred By | Referred To | | | | | Procedures | Contact | Contact | +--------+--------+ + + + + | Closed | | Ophthalmology | | Non-[facility] | [facility], | | | | | | Epic Dept | [facility] | | | | | | | [address] | | | | | | | [address] | | | | | | | [place] | | | | | | | [place], [place] | | | | | | | [address] | | | | | | | Phone: | | | | | | | [phone] | | | | | | | Fax: | | | | | | | [phone] | +--------+--------+ + + + + Encounter Details +--------+---------+ + + + | Date | Type | Department | Care Team | Description | +--------+---------+ + + + | 08/20/ | Office | [facility] | Yohana Taya, | Macular hole, right | | 2018 | Visit | [facility] | [address] | eye (Primary Dx); | | | | [place] [address] | History of | | | | [address] | [place], [place] | vitrectomy | | | | Eye [facility] | [address] | | | | | floor [place], [place] | [phone] | | | | | [address] | | | +--------+---------+ + + + Social History + +-------+ +--------+------+ | [...] recent travel history available. | + + documented as of this encounter Progress Notes Flavio Vega - 08/20/2017 1:00 PM PDTFormatting of this note might be different from th e original. [facility] Progress Note 08/20/2017 67 y.o. female History of vitrectomy Hx of -PPV OD 03/26/2016 and -PPV OD with phaco 06/11/2016 for macular hole Still with central area of distortion, but good VA Hole closed on OCT macula today Recommend observation p reassured excellent result with good vision which should continue t o improve Call for decreased vision, increased distortion, increased pain, new floaters or flashing l ights Follow up: Return if symptoms worsen or fail to improve. Chief Complaint: New patient consultation Self-referred For Second Opinion Macular hole HPI: Presents with macular hole diagnosed in the fall of 2015. Hx of -PPV OD 03/26/2016 and -PPV OD with phaco 06/11/2016 Currently has blurred vision and distortion in the right eye - has been stable Current Outpatient Prescriptions (Other) Medication Sig alendronate Take 70 mg by mouth every seven days. ipratropium pantoprazole Take 40 mg by mouth before breakfast. History reviewed. No pertinent past medical history. History reviewed. No pertinent past surgical history. Family History Problem Relation Cancer Mother Breast Cancer Mother Cataract Father Heart Disease Father Macular degeneration Neg Hx Retinal detachment Neg Hx Glaucoma Neg Hx Blindness Neg Hx Diabetes Neg Hx Amblyopia Neg Hx Strabismus Neg Hx Retinitis pigmentosa Neg Hx Social History Occupational History Not on file. Social History Main Topics Smoking status: Never Smoker Smokeless tobacco: Never Used Alcohol use Not on file Drug use: Unknown Sexual activity: Not on file Examination: See Ophthalmology Module Attestations: The supervisor sound technician, under the supervision of the physician, is responsible for performing the f ollowing sections: RFV, ROS, PMH, PSH, SocHx, FH, Med list, Base Ophth Exam. The attending physician is responsible for the entire content of the note and has personall y performed the HPI and the physical examination TAYA LYNNE MD Tdocumented in this encounter Plan of Treatment Not on filedocumented as of this encounter Procedures + +--------+ + + + | Procedure Name | Priori | Date/Time | Associated Diagnosis | Comments | | | ty | | | | + +--------+ + + + | OCT, RETINA | Routin | 08/20/2017 | Macular hole, | Results for this | | | e | 2:07 PM | right eye | procedure are in the | | | | PDT | | results section. | + +--------+ + + + documented in this encounter Results OCT, RETINA (08/20/2017 2:07 PM PDT) + + + | Narrative | Performed At | + + + | [facility] | [facility] | | DocumentationRight EyeQuality: borderline Central macular [facility] | | thickness: 236 Segmentation: acceptable Left EyeQuality: | | | borderline Central macular thickness: 249 Segmentation: | | | acceptable Provider DocumentationRight EyeRetinal findings: Outer | | | retinal atrophy, Closed hole, epiretinal membrane Left EyeContour: | | | normal macula | | | | | |Left Eye | | |Quality: borderline | | | | | |Central macular thickness: 249 | | |Segmentation: acceptable | | | | | | | | |Provider Documentation | | |Right Eye | | |Retinal findings: Outer retinal atrophy, Closed hole, epiretinal | | |membrane | | | | | | | | |Left Eye | | |Contour: normal macula | | + + + + + + + + | Performing | Address | City/State/Zipcode | Phone Number | | Organization | | | | + + + + + | [facility] | [address] | [place] [address] | | | INSTITUTE | [place] | | | + + + + + documented in this encounter Visit Diagnoses + + | Diagnosis | + + | Macular hole, right eye - Primary Macular cyst, hole, or pseudohole of retina | + + | History of vitrectomy Other states following surgery of eye and adnexa | + + documented in this encounter"
--- OUTSIDE RECORDS SUMMARY | ~2019-11-18 | XMS | Encounter Summary ---
Demographics + + + | Address | [address] | | | [place] [address] | + + + | Home Phone | | + + + | Preferred Language | Unknown | + + + | Marital Status | | + + + | Congregation Affiliation | Unknown | + + + | Race | Unknown | + + + | Ethnic Group | Unknown | + + + Author + + + | Author | [facility] | | | and Bhupinderana | + + + | Organization | [facility] | | | and Bhupinderana [...] [place], [place] | | | | | [address] | | + + + + + Care Team Providers + +------+ + | Care Plant Specialist Name | Role | Phone | + [...] | | is, right | | [place] | | | | | knee | | [address] | | | | | Procedures | | Phone: | | | | | NM TOTAL | | [phone] | | | | | KNEE | | Fax: | | | | | ARTHROPLASTY | | [phone] | | | | | Right | | | | | | | total knee | | | | | | | arthroplasty | | | +--------+--------+ + + + + Encounter Details +--------+ + + + + | Date | Type | Department | Care Team | Description | +--------+ + + + + | 11/02/ | Hospital | [facility] | Samson Xiao MD | S/P total knee | | 2019 - | Encounter | [facility] | [address] | arthroplasty, right | | | | [address] | [place] | (Primary Dx) | | 11/03/ | | [place] [address] | [phone] | | | 2020 | | [phone] | [phone] | | | | | | | | +--------+ + + + + Social History + +-------+ [...] this encounter Last Filed Vital Signs + + + + + | Vital Sign | Reading | Time Taken | Comments | + + + + + | Blood Pressure | 118/56 | 11/04/2019 7:48 AM | | | | | PDT | | + + + + + | Pulse | 63 | 11/04/2019 8:30 AM | | | | | PDT | | + + + + + | Temperature | 36.9 C (98.4 F) | 11/04/2019 7:48 AM | | | | | PDT | | + + + + + | Respiratory Rate | 16 | 11/04/2019 8:30 AM | | | | | PDT | | + + + + + | Oxygen Saturation | 95% | 11/04/2019 8:30 AM | | | | | PDT | | + + + + + | Inhaled Oxygen | - | - | | | Concentration | | | | + + + + + | Weight | 83.7 kg (184 lb 8.4 | 11/04/2019 8:47 AM | | | | oz) | PDT | | + + + + + | Height | 167.6 cm (5' 6") | 11/03/2019 8:00 AM | | | | | PDT | | + + + + + | Body Mass Index | 29.78 | 11/03/2019 8:00 AM | | | | | PDT | | + + + + + documented in this encounter Discharge Instructions Instructions Kay Salmeron, PharmD - 11/02/2019 Your post op appointment is scheduled for 11/11 at 11:00 am. Please check in at 10 :30 am for X-rays at the [facility]. Discharge Instructions for Total KNEE Replacement MOVING SAFELY The crowell to a successful recovery is safe movement and walking! Frequent short walks and exercises are better than one extended walk or exercise do not overdo it. Maintain a neutral position: do not twist over the operated knee. Keep your shoulders, hips, and feet facing the same direction as much as possible. Take several small steps when turning. Protect yourself from falling! Use a walker or crutches for as long as instructed by yo ur therapist. You may not drive until your doctor says its okay and you are no longer taking pain medi cine. SWELLING Use cold therapy on the knee to minimize swelling, at least 3 times a day for the first several weeks, especially before sleep. For at least two weeks when resting in bed, keep your ankle elevated at or above heart l evel as much as possible. If you were given compression stockings in the hospital, continue to use as instructed b y your doctor. Have a family member help remove them at night and check your skin: if there 's any sign of breakdown under the tight elastic, discontinue use. SITTING & SLEEPING Use higher chairs with sturdy arms for support when sitting down (your feet should rest flat on the floor). Work on bending the knee when sitting. Do not sit with your feet and lower legs flexed for more than 30-45 minutes. This cause s swelling in your operated knee, ankles, and feet. When lying down, keep the leg extended and the knee straight (no pillows directly under the knee) - otherwise your knee may heal in a permanent bent position. Nap if you are tired, but don't stay in bed all day! Get up and move for about 10 minut es every hour while awake. Gradually increase walking/standing time after 2 weeks. INCISION CARE ? Keep the waterproof bandage on and change it one week (7 days) after surgery, sooner if i t gets wet underneath or is visibly soiled. ? You may gently cleanse around the wound area with soap and water on a soft washcloth when changing the dressing. Do not scrub or directly touch the incision. Avoid creams and loti ons. ? Call your surgeon if there's continued bleeding or seepage from the incision. ? You may shower as long as all bandage edges are sealed. ? Placing your operated knee underwater is not permitted until cleared by your surgeon, min imally for 4 weeks (no baths, hot tubs, swimming, etc.) MEDICATIONS Pain medication o Pain, swelling and bruising are normal after joint replacement surgery. o Your pain should be controlled enough that you can get adequate rest and can participate in therapy. o Wean off opioids as soon as possible. Narcotics require a hand-written prescription and are not provided on weekends - if a refill is needed, call before early afternoon. o Avoid alcohol, cannabis, other recreational drugs, benzodiazepines, muscle relaxers, & hy pnotics - these increase your risk of falling o Prevent constipation with frequent walks, plenty of water and fiber, and stool softeners Do not take more than 4,000 mg of acetaminophen (Tylenol) per day or risk liver damage. Many pain medications include Tylenol - keep track! Take your anticoagulant (blood thinner) as prescribed to help prevent blood clots (aspir in is most common, taken 4 weeks or longer). OTHER SAFETY MEASURES To help prevent pneumonia, continue to use your incentive spirometer (breathing exercise s) until you are up and moving well. SEEK EMERGENCY TREATMENT ? Chest pain ? Shortness of breath ? Injury/ dislocation to the new joint CALL YOUR SURGEON ? Unusual amount of bleeding or drainage from the surgical site ? Redness that gets worse or skin breakdown around the surgical site ? Unusual amount of swelling at the surgical site despite frequent rests, elevation, and co ld therapy ? Either calf feels 'knotty' hard, hot, and hurts with flexion ? Pain not relieved by prescribed medication ? Inability to hold down fluids from persistent nausea or vomiting ? Inability to urinate or frequent urination with burning ? Severe diarrhea ? Fever over 101F, shaking chills ? Frequent nosebleeds or blood in the urine or stools when taking blood thinners Prescription Drug Facts for Patients having Orthopedic Surgery After surgery you will likely experience some pain and discomfort, treated with a short cou rse of prescription pain medication (opioids). This Prescription Drug Fact Sheet is provided for your safety. KEEP YOURSELF & OTHERS SAFE ? USE: Take your medications only as directed by your doctor. DO NOT share your medications with anyone - sharing your prescriptions with others is illegal and could endanger them. If you are taking benzodiazepines (Xanax, Valium, etc.), consult with your prescriber about ma naging these. Combining opioids with these benzodiazepines can slow or stop breathing. DO NO T mix opioid medications with alcohol or cannabis. Avoid driving or operating heavy machiner y until you are no longer taking opioids. ? STORE: Store your prescriptions securely in their original containers. Keep them out of s ight and out of children's reach, in a locked cabinet or high shelf. ? DISPOSE: Dispose of medications immediately after your pain symptoms have resolved. Unuse d medications should be disposed of at a take-back facility or a medicine drop box. You can search for public disposal locations at https://apps.[employer]actGamesion.[employer].gov/pubdispsearch RISKS OF MISUSE AND OVERDOSE ? When misused, prescription medications may be just as dangerous as illegal drugs. ? Misusing your medications can have serious consequences including physical weakness, poor muscle coordination and falls, nausea, vomiting, and suppressed breathing to the point of hernan alvarez. If you have not taken your medications as directed and you experience any of these sym ptoms, go immediately to an emergency room. If you feel that you have taken more medication than what was prescribed, seek immediate medical attention. ? Misusing your medications may also lead to addiction it is extremely important to carmelo e your medications only as prescribed. ? As you recover from surgery, your opioid use should steadily decrease. If severe pain per sists or your opioid requirements increase, notify your surgeon. FOR YOUR SAFETY, WE DO NOT ROUTINELY ? Prescribe long-acting opioids except in special circumstances ? Prescribe more than a short course of short-acting opioids ? Refill lost, stolen or destroyed prescriptions ADDITIONAL RESOURCE ? FDA/ National Institution on Drug Abuse: https://www.drugabuse.gov/drugs-abuse/opioids documented in this encounter Medications at Time of Discharge + + + +---------+ + + | Medication | Sig | Dispensed | Refills | Start | End Date | | | | | | Date | | + + + +---------+ + + | acetaminophen | Take 650 mg by mouth | | 0 | | | | (TYLENOL) 325 mg | every 4 hours as | | | | | | tablet | needed for Pain. | | | | | + + + +---------+ + + | aspirin (ASPIRIN | Take 1 tablet by | 56 | 0 | 11/04/19 | | | ADULT LOW STRENGTH) | mouth 2 times daily | tablet | | 20 | 0 | | 81 MG EC tablet | for 28 days. | | | | | + + + +---------+ + + | Calcium Carbonate | Take by mouth. | | 0 | | | | (CALCIUM 500 PO) | | | | | | + + + +---------+ + + | celecoxib | Take 400 mg by mouth | | 0 | | | | (CELEBREX) 400 MG | Daily . | | | | | | capsule | | | | | | + + + +---------+ + + | cholecalciferol | Take 50 mcg by mouth | | 0 | | | | (VITAMIN D-3) 25 mcg | Daily . | | | | | | (1,000 units) | | | | | | | tablet | | | | | | + + + +---------+ + + | COLLAGEN-VITAMIN C | Take 1 tablet by | | 0 | | | | PO | mouth Daily. | | | | | + + + +---------+ + + | | Take 1 - 2 tablets | 30 | 0 | 11/03/ | | | HYDROcodone-acetamin | by mouth EVERY 4 to | tablet | | 20 | | | ophen (NORCO) | 6 HOURS NEEDED | | | | | | 7.5-325 mg per | for Pain.. | | | | | | tablet | | | | | | + + + +---------+ + + | ipratropium | 2 sprays by Nasal | | 0 | | | | (ATROVENT) 0.03% | route Daily as | | | | | | nasal spray | needed . | | | | | + + + +---------+ + + | Lutein-Zeaxanthin | Take 1 tablet by | | 0 | | | | 25-5 MG CAPS | mouth Daily. | | | | | + + + +---------+ + + | Multiple | Take by mouth. | | 0 | | | | Vitamins-Minerals | | | | | | | (MULTIVITAMIN ADULTS | | | | | | | PO) | | | | | | + + + +---------+ + + | Union-3 Fatty | Take by mouth Daily | | 0 | | | | Acids (FISH OIL) | . | | | | | | 1200 MG CAPS | | | | | | + + + +---------+ + + | pantoprazole | Take 40 mg by mouth | | 0 | | | | (PROTONIX) 40 mg | every morning | | | | | | tablet | (before breakfast). | | | | | + + + +---------+ + + | Timolol Maleate | Apply 1 drop to eye | | 0 | | | | 0.5 % (DAILY) SOLN | Daily Right eye. | | | | | + + + +---------+ + + documented as of this encounter Progress Notes Samson Xiao MD - 11/04/2019 8:54 AM PDT Subjective: Post-Operative Day: 1 Day Post-Op Status Post Right Total Knee Arthroplasty Systemic or Specific Complaints: Pain Control not great in the last few hours Objective: Temp: [36.3 C (97.3 F)-37.5 C (99.5 F)] 36.9 C (98.4 F) Pulse: [56-80] 56 Resp: [10-20] 16 BP: (112-167)/(56-97) 118/56 General: alert and no distress Wound: No Drainage Motion: Satisfactory ROM CMS: Neuro : intact. Circulation: warm, well perfused DVT Exam: No evidence of DVT seen on physical exam. Data Review Recent Results (from the past 24 hour(s)) Hemoglobin and Hematocrit Result Value Ref Range Hematocrit 35.8 34.0 - 47.0 % Hemoglobin 12.6 11.5 - 16.0 g/dL Extra Green Top Tube Result Value Ref Range Extra Green Top Tube Done Assessment: 1 Day Post-Op status post total knee arthroplasty. <COMORBIDITIES> Special Issues No significant post-operative issues Plan: Continue current postoperative course Physical therapy for gait training OT for ADLs Aspirin for DVT prophylaxis No anticipated change in admission status. Disposition: Plan to discharge today once medically stable and cleared by PT/OT. Outpatient Physical Therapy for six weeks. Aspirin for four week d ocumented in this encounter H&P Notes Samson Xiao MD - 11/03/2019 9:40 AM [facility] AND PHYSICAL UPDATE Pt. Name/Age/: Darline Moscoso 69 y.o. 1950 Date of admission: 11/03/2019 The current H&P was reviewed. The patient was reexamined. Re-evaluation of the patient co nfirms the necessity for the scheduled procedure. No change has occurred in the patient s condition since the H&P was completed less than 30 days ago. Electronically signed by: Samson Xiao MD, 11/03/2019 9:40 AM PDT [facility] Electronically signed by Samson Xiao MD at 10/14 9:40 AM PDTShalini Farooq PA-C - 10/29/2019 2:18 PM PDTActive comorbid cond itions include: - sleep apnea; obstructive Chief complaint: Right knee pain History of present illness: Mrs. Moscoso is a 69-year-old established female patient who is seen today regarding follow up of her right knee pain. She is feeling the pain as a sharp, s tabbing sensation medially, laterally and anteriorly. She is not trusting the knee and is less active because of it. She has had viscosupplementation and cortisone multiple times i n the past. Most recent cortisone injection was June 2019. She is here for her formal pre -operative appointment for right total knee arthroplasty scheduled on November 02. Past medical history: АЛЕКСАНДР. Past surgical history: right carpal tunnel release 25 to 30 years ago, D&C and hemorrhoid ectomy. Medications: Celebrex, pantoprazole, calcium, multivitamins, aspirin, flax oil, and gluco samine. Allergies: sulfa medications. Social history: Patient is a nonsmoker and drinks alcohol only occasionally. She is mar ried and is retired. Review of systems is negative on the patient information sheet. Physical Examination: A well-developed, well-nourished older woman in no acute distress. HEENT: Atraumatic, normocephalic. Anicteric. Skin is warm and dry. Chest: Regular, non-labored respirations Cardiac: Regular pulse. Orthopedic: Right knee shows mild varus alignment. No palpable effusion. ROM is 5-115 deg sandrine. Ligamentous exam is stable. TTP medially and with patellar grind which shows bony crep itation. Gait shows antalgic limp favoring the right leg. Radiographs: Plain films obtained today show advanced bicompartmental [id number] arthrosi s of the right knee. A/P) 69 year old woman with long-standing and progressive right knee OA which is now severe and lifestyle limiting despite extensive conservative care. She desires definitive interven tion with a right total knee arthroplasty. Today we discussed the nature of the procedure, l imitations, potential risks and expected recovery. She gives informed consent in writing. She has no additional risk factors for thromboembolism and we will plan on ASA for DVT prop hylaxis. Implant selection: standard cemented TKA components. Discharge planning: home with after 1-2 nights in hospital. Resume Celebrex immediately post-op to help with pain management. Past Medical History ?? History of Bladder disorder (N32.9) ?? History of Dyspepsia (R10.13) ?? History of folliculitis (Z87.2) ?? History of hyperlipidemia (Z86.39) ?? History of low back pain (Z87.39) ?? History of Leg pain (M79.606) ?? History of Menopausal disorder (N95.9) ?? 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 History of Osteoarthritis of right hand, unspecified osteoarthritis type (M19.041) ?? History of Post-nasal drainage (R09.82) ?? History of Sacroiliac joint pain (M53.3) Surgical History ?? History of Dilation And Curettage ?? History of Hemorrhoidectomy ?? History of Incisional Breast Biopsy ?? History of Tonsillectomy With Adenoidectomy Family History Mother ?? Family history of malignant neoplasm of breast (Z80.3) Father ?? Family history of chronic obstructive pulmonary disease (Z82.5) Family History ?? Family history of diabetes mellitus (Z83.3) ?? Family history of malignant neoplasm (Z80.9) Current Meds ?? Aspirin 81 MG TABS; Therapy: (Recorded:[id number]) to Recorded ?? Calcium 500 MG CHEW; Therapy: 26Icc8570 to Recorded ?? Celecoxib 400 MG Oral Capsule; TAKE 1 CAPSULE BY MOUTH EVERY DAY; Therapy: 49Cie4343 to (Evaluate:[id number]) Requested for: 27Apr2019; Last Rx:27Apr2019; Status: ACTIVE - Retrospective By Protocol Authorization Ordered ?? Fish Oil 1200 MG Oral Capsule; Therapy: [id number] to Recorded ?? Fosamax TABS; Therapy: (Recorded:29Ujv2097) to Recorded ?? Glucosamine 1500 Complex Oral Capsule; Therapy: 88Afp5786 to Recorded ?? Ipratropium [place] 0.03 % Nasal Solution; INSTILL TWO SPRAYS IN EACH NOSTRIL 2 TO 3 TIMES DAILY; Therapy: 17Feb2015 to (Last Rx:[id number]) Requested for: 44Cjk8029 Ordered ?? Multi-Vitamin/Minerals Oral Tablet; Therapy: 24Wxi7735 to Recorded ?? Pantoprazole Sodium 40 MG Oral Tablet Delayed Release; TAKE 1 TABLET BY MOUTH 30 MINUTES BEFORE BREAKFAST DAILY; Therapy: 47Pln8597 to (Last Rx:[id number]) Requested for: 26Aug2019; Status: ACTIVE - Renewal Denied Ordered ?? Timolol Maleate 0.5 % Ophthalmic Solution; Therapy: (Recorded:05Fhx0388) to Recorded ?? Vitamin D 1000 UNIT TABS; Therapy: 20Qqt9517 to Recorded Allergies ?? Sulfa Drugs Vitals Vitals Panel Recorded: 13Oct2019 03:08PM Weight: 185 lb Blood Pressure: 118 / 68, RUE, Sitting Heart Rate: 62, R Radial Recorded: 13Oct2019 03:06PM Weight: 185 lb Blood Pressure: 118 / 68, RUE, Sitting Heart Rate: 62, R Radial Assessment ?? Primary osteoarthritis of right knee (M17.11) CS-Active Problems 1. Actinic keratosis (L57.0) 2. Advanced directives, counseling/discussion (Z71.89) 3. Carpal tunnel syndrome (G56.00) 4. Zheng angioma (D18.01) 5. Chronic rhinitis (J31.0) 6. Chronic throat clearing (R68.89) 7. Degenerative joint disease (DJD) of lumbar spine (M47.816) 8. Fatigue (R53.83) 9. Hyperlipemia (E78.5) 10. Laryngopharyngeal reflux (LPR) (K21.9) 11. Lentigo (L81.4) 12. Low back pain (M54.5) 13. Milia (L72.0) 14. Multiple nevi (D22.9) 15. Neoplasm of uncertain behavior of skin (D48.5) 16. Obstructive sleep apnea, adult (G47.33) 17. Open comedone (L70.0) 18. Osteoporosis (M81.0) 19. Primary osteoarthritis of right knee (M17.11) 20. Right ankle swelling (M25.471) 21. Sebaceous hyperplasia (L73.8) 22. Seborrheic keratoses (L82.1) Pre-op testing (V72.84) (Z01.818) Encounter for screening for other viral diseases (V73.89) (Z11.59) Signatures Electronically signed by : Samson Xiao MD; Oct 13 2019 10:04PM PST (Author)Electronicall y signed by Shalini Farooq PA-C at 10/29/2019 2:23 PM PDTdocumented in this encounte r Miscellaneous Notes Plan of Care - Cecille Obregon RN - 11/04/2019 1:16 PM PDTPatient transported home with . Discharge instructions given by pharmacy. PRN [place] given. lan of [place] - Zehra Spicer PTA - 11/04/2019 11:39 AM PDT Physical Therapy Treatment Note Recommended discharge disposition: home with assist Post discharge physical therapy recommendation: family involved/supportive, outpatient ther apy, will benefit from structured setting, ongoing low intensity therapy Equipment Recommendations: none Barriers to community-based discharge: Pain Planned Interventions: balance training, bed mobility training, gait training, home exercis e program, joint mobilization, manual therapy techniques, postural re-education, patient/fam renetta education, neuromuscular re-education, motor coordination training, ROM (Range of Motion ), stair training, strengthening, stretching, transfer training (may reflect documentation from different provider) Recommended Frequency: (1-2x/day BID if possible) for days with reassessment due by 11/09 Summary: Darline has been participating in physical therapy for treatment of Impaired funct ional mobility and gait with R TKA.. Emphasis of session included functional mobility training with focus on bed mobility, tranf ers, gait and stair training. Patient demonstrates progress towards functional goals as yury denced by progression of gait distance and improved functional mobility. RN cleared patient for participation in therapy. Patient was agreeable to therapy. Patient participated without adverse reaction. RN debriefed on therapy session and patient status. I t is encouraged that the patient be up in chair for all meals. Recommended mobility with nursing: Day Night into the bathroom into the bathroom Front Wheel Walker Front Wheel Walker stand by assistance stand by assistance Darline will benefit from continued therapeutic intervention to address ongoing impairments a nd increase safety and independence with activities necessary for safe discharge. Refer bel ow for specific details regarding functional levels. Bed Mobility Bed Mobility Comments: Patient able to complete without physical assistance. Assistive Device: HOB elevated Supine to Sit, Level of [place]: modified independent Sit to Supine, Level of [place]: modified independent Safety Issues: decreased use of legs for bridging/pushing Impairments: pain, impaired balance Transfers Transfers Comments: Patient able to complete without physical assistance. demostrated good technique and safety awareness. Sit-Stand, Level of [place]: modified independent Stand-Sit, Level of [place]: modified independent Zis-Ebofp-Poe, Assistive Device: 2 wheeled walker (FWW) Impairments: strength decreased, impaired balance, pain Gait Gait Comments: Patient able to ambulate with FWW and verbal cues for technique. no buckling . Level of [place]: stand by assist Assistive Device: 2 wheeled walker (FWW) Distance (feet): 25 ft, 100 ft Additional Documentation: stairs (group) Stairs Stairs, Comment: completed 4 steps with bilateral rail. education for sequence and techniqu e Number of Stairs: 4 Handrail Location: both sides Level of [place]: contact guard assist Assistive Device: 2 rails Technique Used: step to step (descending), step to step (ascending) Safety Issues: balance decreased during turns, weight-shifting ability decreased Impairments: ROM decreased, strength decreased, impaired balance, pain Exercises TKA exercises: right, TKA program, knee extension stretch, seated flexion Goals Reflects last filed data and may be from multiple contributors. All Bed Mobility Goal Most Recent Value LTG Status met at 11/04/2019 1139 LTG [place] Level modified independent at 11/03/2019 1323 LTG Assistive Device bed rails, HOB elevated at 11/03/2019 1323 Alq-Tnznl-Brm Goal Most Recent Value LTG Status progressing at 11/04/2019 1139 LTG [place] Level modified independent at 11/03/2019 1323 LTG Assistive Device 2 wheeled walker (FWW) at 11/03/2019 1323 Srh-Fkmzx-Gja Goal Most Recent Value LTG Status progressing at 11/04/2019 1139 LTG [place] Level modified independent at 11/03/2019 1323 LTG Assistive Device 2 wheeled walker (FWW) at 11/03/2019 1323 Gait Goal Most Recent Value LTG Status progressing at 11/04/2019 1139 LTG [place] Level modified independent at 11/03/2019 1323 LTG Assistive Device 2 wheeled walker (FWW) at 11/03/2019 1323 LTG Distance (feet) 150 at 11/03/2019 1323 Stair Goal Most Recent Value LTG Status progressing at 11/04/2019 1139 LTG [place] Level modified independent at 11/03/2019 1323 LTG Assistive Device 2 rails at 11/03/2019 1323 LTG Number of Stairs 4 at 11/03/2019 1323 PT Time Calculation Individual Start Time: 1115 Individual Stop Time: 1139 Individual Total Time: 24 PT Total Treatment Time: 24 Timed [place] Code Minutes: 24 Electronically signed by: Zehra Spicer PTA, 11/04/2019 1:33 PM PDT lan of Care - Cecille Obregon RN - 11/04/2019 11:36 AM PDT Problem: Adult Inpatient Plan of Care Goal: Plan of Care Review Outcome: Ongoing, progressing Goal: Patient-Specific Goal Outcome: Ongoing, progressing Goal: Absence of Hospital-Acquired Illness or Injury Outcome: Ongoing, progressing Goal: Optimal Comfort and Wellbeing Outcome: Ongoing, progressing Goal: Readiness for Transition of Care Outcome: Ongoing, progressing Goal: Rounds/Family Conference Outcome: Ongoing, progressing Problem: Bleeding (Knee Arthroplasty) Goal: Absence of Bleeding Outcome: Ongoing, progressing Problem: Bowel Elimination Impaired (Knee Arthroplasty) Goal: Effective Bowel Elimination Outcome: Ongoing, progressing Problem: Infection (Knee Arthroplasty) Goal: Absence of Infection Signs/Symptoms Outcome: Ongoing, progressing Problem: Joint Function Impaired (Knee Arthroplasty) Goal: Optimal Functional Ability Outcome: Ongoing, progressing Problem: Ongoing Anesthesia Effects (Knee Arthroplasty) Goal: Anesthesia/Sedation Recovery Outcome: Ongoing, progressing Problem: Postoperative Nausea and Vomiting (Knee Arthroplasty) Goal: Nausea and Vomiting Relief Outcome: Ongoing, progressing Problem: Pain (Knee Arthroplasty) Goal: Acceptable Pain Control Outcome: Ongoing, progressing Problem: Postoperative Urinary Retention (Knee Arthroplasty) Goal: Effective Urinary Elimination Outcome: Ongoing, progressing Problem: Obstructive Sleep Apnea Risk or Actual (Comorbidity Management) Goal: Unobstructed Breathing During Sleep Outcome: Ongoing, progressing Problem: Fall Injury Risk Goal: Absence of Fall and Fall-Related Injury Outcome: Ongoing, progressing Problem: Mobility Impairment Goal: Optimal Mobility Outcome: Ongoing, progressing Problem: Discharge Planning Goal: Patient's discharge needs will be identified in a timely manner Outcome: Ongoing, progressing Goal: Patient will be discharged in a safe manner Outcome: Ongoing, progressing Pt alert and oriented x4. PRN [place] given for pain. 2P assist w/ fww. IV RFA saline lock. L BM 11/02. Voided without difficulty. Lungs clear. CPAP at night. RT knee incision clean, pink , with approximated edges. Cleansed with alcohol. Hydrocolloid dressing applied. CMS intact. Polar care and compression socks on.Electronically signed by Cecille Obregon RN at 2019 11:46 AM PDTPlan [facility] MSW - 11/04/2019 11:25 AM PDTIn to see mart avalos to discuss discharge planning. Patient lives in [place] with her . She has 2 steps to get into her home, it is a one level home. Patient was independent with ADL's prior to admission. Patient has her FWW in the room with her. Patient was not on home oxygen, did not have a Cpap. Patient's shower is a walk in shower with a seat. Pharmacy is [facility] in [place], PCP is Dr. Wesley, will provide transportation at [facility]. Patient denied any additional needs or services at home. Plan: Home with Electronically signed by: SARTHAK Salgado 11/04/2019 1:46 PM PDT lan of Care - Kathryn Owusu, OT - 9:30 AM PDT Occupational Therapy Initial Evaluation, Treatment, Discharge Note Recommended discharge disposition: home with assist Post discharge occupational therapy recommendation: pt is motivated participant, family inv olved/supportive Equipment Recommendations: none Barriers to community-based discharge: Fall risk Planned Interventions: balance training, functional endurance training, transfer training Recommended Frequency: one time visit for 1 days with reassessment due by 11/04/19 Summary: Darline has been participating in occupational therapy for treatment of Decreased ADL independence, functional mobility s/p Right total knee arthroplasty (Right Knee). Empha sis of session included total body dressing, toileting, toilet t/fs, functional mobility and functional t/fs. Patient demonstrates progress towards functional goals as evidenced by de monstrating mod I with ADLs and functional t/fs. No further acute OT. RN cleared patient for participation in therapy. Patient was agreeable to therapy. Patient participated without adverse reaction. RN debriefed on therapy session and patient status. P atient is encouraged to ambulate into hallway with nursing staff. It is encouraged that the patient be up in chair for all meals. Recommended toileting with nursing: Day Night toilet with bedside commode over toilet with bedside commode over Front Wheel Walker Front Wheel Walker supervision / set-up supervision / set-up Darline will benefit from continued therapeutic intervention to address ongoing impairments a nd increase safety and independence with activities necessary for safe discharge. Refer bel ow for specific details regarding functional levels. independent prior, dues not use A.D. but got a FWW in prep for surgery. hx of АЛЕКСАНДР with C PAP. Precautions Precautions/Limitations: falls Right Lower Extremity Weight-Bearing: weight-bearing as tolerated Cognitive Assessment Orientation: oriented x 4 Impairments Found (describe specific impairments): ergonomics and body mechanics, functiona l endurance/activity tolerance, gait, locomotion, and balance Manual Lymphatic Mobilization following right knee surgery: Darline was instructed if swelling occurs at home to perform 1 set 10 repetitions of each mas joelle technique before meals. 1. Deep breathe - 5x in through the nose, out through the mouth - push all air out. 2. Pull hand from pocket - with hand flat, place index finger on the underwear line (crease of leg), hand toward inside of leg. Gently stretch skin away from groin - this "milks" the lymph nodes in the area. Repeat 10 times. 3. Massage inside of leg - start at the inside of the knee and stroke to the outside of the leg - this will require you to repeat multiple times as you want to include the entire uppe r leg. Repeat 10 times each area. 4. Massage the outside of the leg - start at the knee and stroke up the outside of the leg past the hip. Repeat [address] both hands on each side of the knee with thumbs up and fingers behind knee - gentl y roll your hands upward towards your heart. Repeat 10 times. mod I with ADL in room. Grooming Assessment/Training Grooming Assess/Train, Comment: mod I at sink to wash hands. Grooming, Level of [place]: modified independent Assistive Device: none Grooming Assess/Train, Position: standing Grooming Impairments: pain Upper Body Dressing Assessment/Training UB Dressing Assess/Train, Comment: mod I in sitting. UB Dressing, Level of [place]: modified independent Assistive Device: none UB Dressing Assess/Train, Position: sitting UB Dressing Impairments: ROM decreased Lower Body Dressing Assessment/Training LB Dressing Assess/Train, Comment: mod I. initial education for sequencing for LB dressing. no assist. LB Dressing, Level of [place]: modified independent Assistive Device: none LB Dressing Assess/Train, Position: sitting, standing LB Dressing Impairments: pain Toileting Assessment/Training Toileting Assess/Train, Comment: mod I with hygiene and clothing management. Toileting, Level of [place]: modified independent Assistive Device: grab bar Bed Mobility Additional Documentation: supine to/from sit Supine to Sit, Level of [place]: modified independent Sit to Supine, Level of [place]: modified independent Sidelying to Sit, Level of [place]: modified independent Sit to Sidelying, Level of [place]: modified independent Safety Issues: decreased use of legs for bridging/pushing Impairments: pain, impaired balance Transfers Transfers Comments: mod I for functional t/fs in room. no physical assist. Additional Documentation: sit to/from stand, toilet, bed to/from chair Bed-Chair, Level of [place]: modified independent Chair-Bed, Level of [place]: modified independent [id number], Assistive Device: 2 wheeled walker (FWW) Sit-Stand, Level of [place]: modified independent Stand-Sit, Level of [place]: modified independent [id number], Assistive Device: 2 wheeled walker (FWW) Toilet, Level of [place]: modified independent Toilet, Assistive Device: 2 wheeled walker (FWW), grab bars Impairments: strength decreased, impaired balance, pain Range of Motion L UE ROM: WFL R UE ROM: WFL Strength L UE Strength: WFL R UE Strength: WFL Functional Endurance Functional Endurance Comments: good for activities performed. Goals Reflects last filed data and may be from multiple contributors. Additional Goals #1 OT Most Recent Value LTG Status new, met at 11/04/2019 0930 LTG pt will complete OT evaluation and education to promote safety and independence at [facility]. at 11/04/2019 0930 Date of Surgery: 11/03/19 Start of Care/Start of Certification Date: 11/04/19 End of Certification Date: 11/04/19 Unilateral primary osteoarthritis, right knee [M17.11] OT Time Calculation OT Individual Start Time: 909 OT Individual Stop Time: 929 OT Individual Total Time: 20 OT Total Treatment Time: 20 Timed TX Code Minutes: 0 Electronically signed by: Kathryn Owusu OT, 11/04/2019 10:26 AM PDT lan of Care - Christine Walter RN - 11/04/2019 7:40 AM PDTIntroduced myself to patient as barrel drum cutter for Total Joints. Discussed with patient my role as RN Joint Navigator and how we can help with their total joint recovery. Pt. 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 Informed patient they would be receiving a phone call from me 24-72 hours after the y are discharge from the hospital. Informed patient I am a resource for them (business card given) and will be following them for 90 days after discharge from hospital. Patient reports she has a walker with her in the room. Reviewed discharge plan: Support head boys golf coach his Bruce, discharge to home out patient colton cesar. lan of [facility] - Libby Sheppard RN - 11/04/2019 4:49 AM PDTPt pain managed well with PRN [place] x2, denies naus ea at this time. Pt up to void in BSC. Dressing to right knee is CDI with polar care in plac e. Pt is A&o x4 and calls appropriately for help. VSS on 2L 02 via FL. lan of Annmarie Deleon RRT - 11/04/2019 1:42 AM PDTPt room air SpO2 96%, pale/w/d, no c/o SOB or dyspnea, pt doing IS well achievin g 2000, home CPAP set up and pt is compliant at night with it.. BS CTA slightly diminished L L, pt stable and NAD at this time. 1 :44 AM PDTPlan of Libertad Henderson RRT - 11/03/2019 6:18 PM PDTBreath sounds clear. Patient achieving 2000 of IS Predicted Level (mL) : 2150. SpO2: 97 % on 2liters/minute haydee al cannula. She uses her home cpap at night. lan of Cher Terrell RN - 11/03/2019 4:19 PM PDT Problem: Adult Inpatient Plan of Care Goal: Plan of Care Review Outcome: Ongoing, progressing Goal: Patient-Specific Goal Outcome: Ongoing, progressing Goal: Absence of Hospital-Acquired Illness or Injury Outcome: Ongoing, progressing Goal: Optimal Comfort and Wellbeing Outcome: Ongoing, progressing Goal: Readiness for Transition of Care Outcome: Ongoing, progressing Goal: Rounds/Family Conference Outcome: Ongoing, progressing Problem: Bleeding (Knee Arthroplasty) Goal: Absence of Bleeding Outcome: Ongoing, progressing Problem: Fall Injury Risk Goal: Absence of Fall and Fall-Related Injury Outcome: Ongoing, progressing Problem: Obstructive Sleep Apnea Risk or Actual (Comorbidity Management) Goal: Unobstructed Breathing During Sleep Outcome: Ongoing, progressing Problem: Pain (Knee Arthroplasty) Goal: Acceptable Pain Control Outcome: Ongoing, progressing Problem: Postoperative Nausea and Vomiting (Knee Arthroplasty) Goal: Nausea and Vomiting Relief Outcome: Ongoing, progressing Problem: Joint Function Impaired (Knee Arthroplasty) Goal: Optimal Functional Ability Outcome: Ongoing, progressing Problem: Bowel Elimination Impaired (Knee Arthroplasty) Goal: Effective Bowel Elimination Outcome: Ongoing, progressing Pt alert and oriented. Sleepy. Pain 5/10. Routine tylenol given. 2P assist w/ fww to BS. IV RFA infusing LR @100/hr. Slight nausea when arrived at floor that's resolved. LBM today. Voided without difficulty. Lungs clear, dim. 2L o2 and cpap at night. RT knee wilfredo wrap CDI. CMS intact. Polar care and scds on.Electronically signed by Cher Tapia RN at 0 4:23 PM PDTPlan of Care - Rajesh Swenson, PT - 11/03/2019 2:03 PM PDT [facility] Physical Therapy OPIB Plan of Care Initial Evaluation, Treatment Note Patient Name: Darline Moscoso Date of Onset of Illness/Injury or Date of Surgery: 11/03/19 Start of Care/Start of Certification Date: 11/03/19 End of Certification Date: 11/10/19 Summary: Darline presents to physical therapy with Impaired functional mobility and gait wi th R TKA.. Overall, pt is very lethargic and reports nausea and 2P required due to Active sensory and motor nerve block R knee, present and receptive to education. She requested to BSC w hile up and uneventfully stepped and turned with 2P assist to commode, following commands no ting only decreased overall control of R leg and impaired sensation. Pt reports she is liste leighton but wants to keep her eyes closed because of nausea and heavy eyelids. She indicates pe riodically she is listening as we review goals and extension stretch. She participated with mobility but wanted to lie down after and appeared very sleepy. Objective exam reveals impairments with aerobic capacity/endurance, ergonomics and body mec hanics, anthropometric characteristics, functional endurance/activity tolerance, circulation , muscle performance, neuromotor, motor function, joint integrity and mobility, integumentar y integrity, gait, locomotion, and balance, ROM, reflex integrity, sensory integration/regul ation, social dynamics, visual/perceptual, HEP. RN cleared patient for participation in therapy. Patient was agreeable to therapy. Patient participated without adverse reaction. RN debriefed on therapy session and patient status. I t is encouraged that the patient be up in chair for all meals. Recommended mobility with nursing: Day Night bedside commode bedside commode Front Wheel Walker Front Wheel Walker minimum assistance and verbal cues and tactile cues minimum assistance and verbal cues and tactile cues Barriers to discharge and functional limitations include decreased insight into safety and deficits, decreased functional activity tolerance, decreased bed mobility, decreased functio nal transfers, decreased functional gait distance, decreased gait velocity, stairs at home, demonstrating need for 24/7 supervision, not yet able to mobilize at level safe for home dis charge, and medical status. Darline will benefit from therapeutic intervention to address impairments and increase safety and independence with activities necessary for safe discharge. Refer below for specific de tails regarding functional levels. Precautions/Limitations: falls Right Lower Extremity Weight-Bearing: weight-bearing as tolerated Previous Level of Function: Prior Functional Level Comment: independent prior, dues not use A.D. but got a FWW in prep for surgery. hx of АЛЕКСАНДР with C PAP. Potential available assistance at discharge: Living Environment/Accessibility: Lives With: spouse Living Arrangements: house Home Accessibility: no concerns Transportation Available: family or friend will provide Patient/Family s Goals: return to PLOF Rehabilitation potential: good, to achieve stated therapy goals Identified Problems Needing Skilled Intervention: Impaired functional mobility and gait wit h R TKA., aerobic capacity/endurance, ergonomics and body mechanics, anthropometric characte ristics, functional endurance/activity tolerance, circulation, muscle performance, neuromoto r, motor function, joint integrity and mobility, integumentary integrity, gait, locomotion, and balance, ROM, reflex integrity, sensory integration/regulation, social dynamics, visual/ perceptual Physical Therapy Discharge Recommendations are: Recommended discharge disposition: home with assist Post discharge physical therapy recommendation: family involved/supportive, outpatient the rapy, will benefit from structured setting, ongoing low intensity therapy Equipment Recommendations: none(has own FWW) Planned Interventions: balance training, bed mobility training, gait training, home exerci se program, joint mobilization, manual therapy techniques, postural re-education, patient/fa garcía education, neuromuscular re-education, motor coordination training, ROM (Range of Motio n), stair training, strengthening, stretching, transfer training Recommended Frequency: (1-2x/day BID if possible) Patient Status/Goals: Reflects last filed data and may be from multiple contributors. Bed Mobility pt very groggy but agreeable, nauseous. Assistive Device: HOB elevated, bed rails Supine to Sit, Level of [place]: minimal assist (75% patient effort) Sit to Supine, Level of [place]: minimal assist (75% patient effort) Sidelying to Sit, Level of [place]: minimal assist (75% patient effort) Sit to Sidelying, Level of [place]: minimal assist (75% patient effort) Safety Issues: decreased use of arms for pushing/pulling, decreased use of legs for bridgin g/pushing Impairments: impaired balance, strength decreased, sensation decreased, muscle tone abnorma l, decreased flexibility Transfers 2P required due to Active sensory and motor nerve block R knee, 2P min A to BSC and back to bed Sit-Stand, Level of [place]: minimal assist (75% patient effort), 1 person + 1 person to manage equipment Stand-Sit, Level of [place]: minimal assist (75% patient effort), 1 person + 1 person to manage equipment [id number], Assistive Device: 2 wheeled walker (FWW) Gait 2P required due to Active sensory and motor nerve block R knee, Level of [place]: minimal assist (75% patient effort) Assistive Device: 2 wheeled walker (FWW) Distance (feet): 4 Gait Pattern Analysis: 3-point gait Balance good Therapeutic Exercise intro to passive knee stretch with pillow under R ankle for up to 20 min, pt tolerating wel l with active nerve block. TKA exercises: right, TKA program, knee extension stretch Repetitions: 1 Functional Endurance ROM Active sensory and motor nerve block R knee, R knee grossly -20 deg for ext with wilfredo wrap a nd dressings. sitting up at 80 deg flexion tolerated. Pt and report her R knee didn' t go very straight prior to surgery. Strength Active sensory and motor nerve block R knee, Grossly R knee is 2/5, LLE is WFL PT Goal Review Date Most Recent Value LTG Review Date 11/10/19 at 11/03/2019 1323 All Bed Mobility Goal Most Recent Value LTG Status new at 11/03/2019 1323 LTG [place] Level modified independent at 11/03/2019 1323 LTG Assistive Device bed rails, HOB elevated at 11/03/2019 1323 Dvc-Uxmir-Oro Goal Most Recent Value LTG Status new at 11/03/2019 1323 LTG [place] Level modified independent at 11/03/2019 1323 LTG Assistive Device 2 wheeled walker (FWW) at 11/03/2019 1323 [id number] Goal Most Recent Value LTG Status new at 11/03/2019 1323 LTG [place] Level modified independent at 11/03/2019 1323 LTG Assistive Device 2 wheeled walker (FWW) at 11/03/2019 1323 Gait Goal Most Recent Value LTG Status new at 11/03/2019 1323 LTG [place] Level modified independent at 11/03/2019 1323 LTG Assistive Device 2 wheeled walker (FWW) at 11/03/2019 1323 LTG Distance (feet) 150 at 11/03/2019 1323 Stair Goal Most Recent Value LTG Status new at 11/03/2019 1323 LTG [place] Level modified independent at 11/03/2019 1323 LTG Assistive Device 2 rails at 11/03/2019 1323 LTG Number of Stairs 4 at 11/03/2019 1323 PT Time Calculation Individual Start Time: 1323 Individual Stop Time: 1403 Individual Total Time: 40 PT Total Treatment Time: 40 Timed TX Code Minutes: 25 Electronically signed by: Rajesh Swenson, PT, 11/03/2019 8:44 PM PDT Unilateral primary osteoarthritis, right knee [M17.11] p Note - Samson Xiao MD - 11/03/2019 11:58 AM PDTTotal Knee Arthroplasty Operative Report Indications: Darline Moscoso has severe osteoarthritis of the right knee with symptoms limi ting function. After failing reasonable conservative measures, Darline Moscoso elects to pro ceed with surgical treatment with a right total knee arthroplasty. Risk, alternatives and b enefits were discussed in detail. Consent was obtained in the clinic. Pre-operative Diagnosis: Right knee osteoarthritis Post-operative Diagnosis: Right knee osteoarthritis Procedure: Right total knee arthroplasty Anesthesia: Regional block plus General LMA anesthesia Surgeon: Samson Xiao MD Produce Inspector: Shalini Farooq PA-C. Note the medical assistant ob gyn was necessary in performing t his procedure. Findings: Patellofemoral compartment: Advanced arthrosis. Medial compartment: moderately a dvanced arthrosis. Lateral compartment: advanced arthrosis. ACL: intact. Estimated Blood Loss: 75 mL Drains: none Pain cocktail: Ropivacaine 0.5% x 25 mL, Clonidine 0.04 mg, Ketorolac 15 mg and Epinephrin e 0.25 mg in NS for a total volume of 50 mL Implants: Mateo Persona knee: femur size 7, tibia size D, 10 mm Ultra-congruent poly, s ize 32 mm patella Complications: None Specimens: None Procedure Details Darline Moscoso was seen in the preoperative area. Surgical site was marked. The adductor canal block was placed by the anesthesiologist. The patient was taken to the operating room where successful General LMA anesthesia was performed. Appropriate antibiotic prophylaxis wa s given. Tranexamic acid 1 gram was given IV. The right leg was placed in a thigh-high tourn iquet. A sterile prep and drape were performed with Duraprep and Ioban. An anterior approach followed by a medial para-patellar arthrotomy was used to gain access to the knee joint and extensive arthritic changes were confirmed. The medial tibia sleeve was elevated. Anterior cruciate ligament was excised. Distal femur was resected using IM technique and then sized. This distal femoral cutting block was pinned in position and the distal femoral cuts were cr eated and bone fragments removed. Distal femoral posterior osteophytes were removed and the posterior capsule was injected with a portion of the cocktail with the remainder being used in the other pericapsular areas. The proximal tibia was retracted anteriorly and medial and lateral retractors were placed. The proximal tibial cutting block was aligned using the EM device and pinned in position. Th e cut was created and the bone was removed. The proximal tibia was sized, the appropriate b aseplate trial was pinned in position and the tibial keel was created. The tibial trial natividad y was placed. The knee was taken through a range of motion. Good stability was achieved. The patella was measured and resurfaced with a 3 peg construct. Patellar tracking was central w ithout additional releases. After washing and drying of the bony surfaces, the components were cemented on using 1 gra m of vancomycin in the cement. Excess cement was removed. After hardening of the cement, the final tibial poly was locked into the tibial baseplate with the videographer. Tourniquet was de flated. Hemostasis was achieved with Bovie cautery. The knee was thoroughly irrigated with pulse lavage saline. Arthrotomy closure was completed with figure of 8 #1 Vicryl sutures, fo llowed by layered closure of subcutaneous tissue and stapling of the skin. Sterile bandages were applied followed by an Wilfredo wrap. The patient tolerated the procedure without difficult y and was subsequently transferred to PACU in stable condition. POSTOPERATIVE PLAN: The patient will be allowed to weight bear as tolerated, ambulate with assistive device. Deep venous thrombosis prophylaxis using combination of mechanical and pha rmacologic means. Antibiotic prophylaxis for 24 hours. documented in this enc ounter Plan of Treatment + +------+--------+ + + | Name | Type | Priori | Associated Diagnoses | Order Schedule | | | | ty | | | + +------+--------+ + + | DME: Walker | DME | Routin | S/P total knee | DME 1 Time for 1 | | | | e | arthroplasty, right | Occurrences starting | | | | | | 11/03/2019 until | | | | | | 11/03/2019 | + +------+--------+ + + documented as of this encounter Procedures + +--------+ + + + | Procedure Name | Priori | Date/Time | Associated Diagnosis | Comments | | | ty | | | | + +--------+ + + + | EXTRA GREEN TOP TUBE | Routin | 11/04/2019 | | Results for this | | | e | 6:04 AM | | procedure are in the | | | | PDT | | results section. | + +--------+ + + + | HEMOGLOBIN AND | Routin | 11/04/2019 | | Results for this | | HEMATOCRIT | e | 6:04 AM | | procedure are in the | | | | PDT | | results section. | + +--------+ + + + | XR KNEE RIGHT 1 - 2 | STAT | 11/03/2019 | | Results for this | | VW | | 12:05 PM | | procedure are in the | | | | PDT | | results section. | + +--------+ + + + | ARTHROPLASTY KNEE | | 11/03/2019 | Unilateral primary | | | | | 10:12 AM | osteoarthritis, | | | | | PDT | right knee | | + +--------+ + + + +---+--------+ | | | | | Specia | | | l | | | Needs | | | | | | Mateo | | | total | | | knee | | | set | +---+--------+ + +---+ +---+ + | LABS - EXTERNAL SCAN | | 10/31/2019 | | Results for this | | | | 12:00 AM | | procedure are in the | | | | PDT | | results section. | + +---+ +---+ + | LABS - EXTERNAL SCAN | | 10/13/2019 | | Results for this | | | | 12:00 AM | | procedure are in the | | | | PDT | | results section. | + +---+ +---+ + | ECG - EXTERNAL SCAN | | 10/13/2019 | | Results for this | | | | 12:00 AM | | procedure are in the | | | | PDT | | results section. | + +---+ +---+ + documented in this encounter Results Extra Green Top Tube (11/04/2019 6:04 AM PDT) + +-------+ + + + | Component | Value | Ref Range | Performed | Pathologist | | | | | At | Signature | + +-------+ + + + | Extra Green | Done | | [facility] | | | Top Tube | | | [facility] | | | | | [facility] | | | | [facility] - | | | | | | LABORATORY | | + +-------+ + + + + + | Specimen | + + | Blood | + + + + + + + | Performing | Address | City/State/Zipcode | Phone Number | | Organization | | | | + + + + + | [facility] | [address] | [place] | [phone] | | [facility] | | [address] | | | - LABORATORY | | | | + + + + + Hemoglobin and Hematocrit (11/04/2019 6:04 AM PDT) + +-------+ + + + | Component | Value | Ref Range | Performed | Pathologist | | | | | At | Signature | + +-------+ + + + | Hematocrit | 35.8 | 34.0 - 47.0 % | [facility] | | | | | | [facility] | | | | | | [facility] | | | | | | [facility] - | | | | | | LABORATORY | | + +-------+ + + + | Hemoglobin | 12.6 | 11.5 - 16.0 | [facility] | | | | | g/dL | [facility] | | | | | | [facility] | | | | | | [facility] - | | | | | | LABORATORY | | + +-------+ + + + + + | Specimen | + + | Blood | + + + + + + + | Performing | Address | City/State/Zipcode | Phone Number | | Organization | | | | + + + + + | [facility] | [address] | [place] | [phone] | | [facility] | | [address] | | | - LABORATORY | | | | + + + + + XR Knee Right 1 - 2 Vw (11/03/2019 12:05 PM PDT) + + | Specimen | + + | | + + + + + | Impressions | Performed At | + + + | Expected postsurgical changes throughout the right knee status post | [facility] | | total right knee arthroplasty. No immediate postoperative | | | complication identified. Electronically signed by Alex Boucher MD | | | 11/03/2019 12:46 PM | | + + + + + + | Narrative | Performed At | + + + | XR KNEE RIGHT 1 - 2 VW 11/03/2019 11:50 AM HISTORY: Status post | [facility] | | knee arthroplasty. COMPARISON: None. FINDINGS: See below | | + + + + + | Procedure Note | + + | Richard, [id number] - 11/03/2019 12:49 PM PDT XR KNEE RIGHT 1 - 2 VW 11/03/2019 11:50 AM | | | | HISTORY: Status post knee arthroplasty. | | | | COMPARISON: None. | | | | FINDINGS: See below | | | | IMPRESSION: | | Expected postsurgical changes throughout the right knee status post | | total right knee arthroplasty. | | | | No immediate postoperative complication identified. | | | | Electronically signed by Alex Boucher MD 11/03/2019 12:46 PM | + + + +---------+ + + | Performing | Address | City/State/Zipcode | Phone Number | | Organization | | | | + +---------+ + + | [facility] | | | | + +---------+ + + LABS - EXTERNAL SCAN (10/31/2019 12:00 AM PDT) + + + | Narrative | Performed At | + + + | Ordered by an | | | unspecified provider. | | + + + LABS - EXTERNAL SCAN (10/13/2019 12:00 AM PDT) + + + | Narrative | Performed At | + + + | Ordered by an | | | unspecified provider. | | + + + ECG - EXTERNAL SCAN (10/13/2019 12:00 AM PDT) + + + | Narrative | Performed At | + + + | Ordered by an | | | unspecified provider. | | + + + documented in this encounter Visit Diagnoses + + | Diagnosis | + + | S/P total knee arthroplasty, right - Primary | + + documented in this encounter Administered Medications + +--------+ + +------+------+ | Medication Order | MAR | Action | Dose | Rate | Site | | | Action | Date | | | | + +--------+ + +------+------+ | acetaminophen (TYLENOL) tablet | Given | 11/03/19 | 1,000 mg | | | | 1,000 mg 1,000 mg, Oral, ONCE, | | 20 8:49 | | | | | 11/03/19 at 0900, For 1 dose, | | AM PDT | | | | | Pre-op | | | | | | + +--------+ + +------+------+ +---+---+ | | | +---+---+ + +-------+ +--------+---+---+ | acetaminophen (TYLENOL) tablet | Given | 11/04/19 | 650 mg | | | | 650 mg 650 mg, Oral, EVERY 6 | | 20 6:11 | | | | | HOURS, First dose on Sat11/03/19 | | AM PDT | | | | | at 1345, Post-op/Phase II | | | | | | + +-------+ +--------+---+---+ +-------+ +--------+---+---+ | Given | 11/03/19 | 650 mg | | | | | 20 2:31 | | | | | | PM PDT | | | | +-------+ +--------+---+---+ +---+---+ | | | +---+---+ + +-------+ + +---+---+ | adult multivitamin with | Given | 11/04/19 | 1 tablet | | | | minerals/iron tablet 1 tablet 1 | | 20 8:46 | | | | | tablet, Oral, DAILY, First dose | | AM PDT | | | | | on Sat11/03/19 at 1345 | | | | | | + +-------+ + +---+---+ +---+---+ | | | +---+---+ + +-------+ +-------+---+---+ | aspirin EC tablet 81 mg 81 mg, | Given | 11/04/19 | 81 mg | | | | Oral, 2 TIMES DAILY, First dose | | 20 8:46 | | | | | on Sat11/04/19 at 0900, Do not | | AM PDT | | | | | cut or crush Give first dose | | | | | | | within 20 hours of surgery end | | | | | | | time. Nursing/Pharmacy to retime | | | | | | | first dose to 1900 for surgeries | | | | | | | ending between 2200 and 0900., | | | | | | | Post-op/Phase II | | | | | | + +-------+ +-------+---+---+ + +---+ | | | + +---+ | bisacodyl (DULCOLAX) | | | suppository 10 mg 10 mg, Rectal, | | | DAILY PRN, Constipation, | | | Starting Tu11/03/19 at 1322, If | | | all other bowel medications | | | ineffective x 24 hours or not | | | ordered, Post-op/Phase II | | + +---+ | | | + +---+ | calcium carbonate (TUMS) | | | chewable tablet 1,000 mg 1,000 | | | mg, Oral, EVERY 2 HOURS PRN, | | | Indigestion, Starting Sat11/03/19 | | | at 1322, Post-op/Phase II | | + +---+ | | | + +---+ + +-------+ +-----+---+---+ | ceFAZolin (ANCEF, KEFZOL) 100 | Given | 11/04/19 | 2 g | | | | mg/mL IV Push syringe 2 g 2 g, | | 20 3:46 | | | | | Intravenous, EVERY 8 HOURS | | AM PDT | | | | | INTERVAL, First dose on Sat | | | | | | | 11/03/19 at 1830, For 2 doses, | | | | | | | Start 8 hours after previous | | | | | | | dose. Last dose to be given | | | | | | | within 24 hours of surgery end | | | | | | | time Give IV Push over 3-5 | | | | | | | minutes., Post-op/Phase II, | | | | | | | Indications: Surgical Prophylaxis | | | | | | + +-------+ +-----+---+---+ +-------+ +-----+---+---+ | Given | 11/03/19 | 2 g | | | | | 20 6:37 | | | | | | PM PDT | | | | +-------+ +-----+---+---+ +---+---+ | | | +---+---+ + +-------+ +--------+---+---+ | celecoxib (CELEBREX) capsule | Given | 11/04/19 | 200 mg | | | | 200 mg 200 mg, Oral, 2 TIMES | | 20 8:46 | | | | | DAILY, First dose on Sat11/03/19 | | AM PDT | | | | | at 1345, Doses > 200 mg should be | | | | | | | given with meals., | | | | | | + +-------+ +--------+---+---+ +-------+ +--------+---+---+ | Given | 11/03/19 | 200 mg | | | | | 20 9:12 | | | | | | PM PDT | | | | +-------+ +--------+---+---+ | Given | 11/03/19 | 200 mg | | | | | 20 2:31 | | | | | | PM PDT | | | | +-------+ +--------+---+---+ +---+---+ | | | +---+---+ + +-------+ +--------+---+---+ | cholecalciferol (VITAMIN D-3) | Given | 11/04/19 | 50 mcg | | | | tablet 50 mcg 50 mcg, Oral, | | 20 8:46 | | | | | DAILY, First dose on Sat11/03/19 | | AM PDT | | | | | at 1345 | | | | | | + +-------+ +--------+---+---+ +-------+ +--------+---+---+ | Given | 11/03/19 | 50 mcg | | | | | 20 2:31 | | | | | | PM PDT | | | | +-------+ +--------+---+---+ + +---+ | | | + +---+ | diphenhydrAMINE (BENADRYL) 12.5 | | | mg/5 mL liquid 25 mg 25 mg, | | | Oral, EVERY 4 HOURS PRN, Itching, | | | Starting 11/03/19 at 1322, | | | Oral route is preferred., | | | Post-op/Phase II | | + +---+ | | | + +---+ | diphenhydrAMINE (BENADRYL) | | | injection 12.5 mg 12.5 mg, | | | Intravenous, EVERY 4 HOURS PRN, | | | Itching, Starting 11/03/19 at | | | 1322, Oral route is preferred., | | | Post-op/Phase II | | + +---+ | | | + +---+ | diphenhydrAMINE (BENADRYL) | | | tablet 25 mg 25 mg, Oral, EVERY | | | 4 HOURS PRN, Itching, Starting | | | 11/03/19 at 1322, Oral route | | | is preferred., Post-op/Phase II | | + +---+ | | | + +---+ + +-------+ +--------+---+---+ | docusate sodium (COLACE) | Given | 11/04/19 | 100 mg | | | | capsule 100 mg 100 mg, Oral, 2 | | 20 8:46 | | | | | TIMES DAILY, First dose on Sat | | AM PDT | | | | | 11/03/19 at 1345, First line agent | | | | | | | for constipation, Post-op/Phase | | | | | | | II | | | | | | + +-------+ +--------+---+---+ +-------+ +--------+---+---+ | Given | 11/03/19 | 100 mg | | | | | 20 9:12 | | | | | | PM PDT | | | | +-------+ +--------+---+---+ | Given | 11/03/19 | 100 mg | | | | | 20 2:31 | | | | | | PM PDT | | | | +-------+ +--------+---+---+ +---+---+ | | | +---+---+ + +-------+ +--------+---+---+ | gabapentin (NEURONTIN) capsule | Given | 11/04/19 | 100 mg | | | | 100 mg 100 mg, Oral, 3 TIMES | | 20 8:46 | | | | | DAILY, First dose on Sat11/03/19 | | AM PDT | | | | | at 1400, For 3 days, Hold for | | | | | | | over-sedation, dizziness or | | | | | | | visual disturbance and contact | | | | | | | MD., Post-op/Phase II | | | | | | + +-------+ +--------+---+---+ +-------+ +--------+---+---+ | Given | 11/03/19 | 100 mg | | | | | 20 9:12 | | | | | | PM PDT | | | | +-------+ +--------+---+---+ | Given | 11/03/19 | 100 mg | | | | | 20 2:31 | | | | | | PM PDT | | | | +-------+ +--------+---+---+ +---+---+ | | | +---+---+ + +-------+ +---------+---+---+ | HYDROcodone-acetaminophen | Given | 11/04/19 | 2 | | | | (NORCO) 10-325 mg per tablet 1- | | 20 1:08 | tablets | | | | tablet 1-2 tablet, Oral, EVERY 4 | | AM PDT | | | | | HOURS PRN, Pain, Starting Tue | | | | | | | 11/03/19 at 1322, Post-op/Phase II | | | | | | + +-------+ +---------+---+---+ +---+---+ | | | +---+---+ + +-------+ +---------+---+---+ | HYDROcodone-acetaminophen | Given | 11/04/19 | 2 | | | | (NORCO) 5-325 mg per tablet 1- | | 20 1:11 | tablets | | | | tablet 1-2 tablet, Oral, EVERY 4 | | PM PDT | | | | | HOURS PRN, Pain, Starting Tue | | | | | | | 11/03/19 at 1322, Post-op/Phase II | | | | | | + +-------+ +---------+---+---+ +-------+ + +---+---+ | Given | 11/04/19 | 2 | | | | | 20 8:14 | tablets | | | | | AM PDT | | | | +-------+ + +---+---+ | Given | 11/03/19 | 1 tablet | | | | | 20 9:13 | | | | | | PM PDT | | | | +-------+ + +---+---+ +---+---+ | | | +---+---+ + + + +---+-------+---+ | lactated ringers (LR) infusion | Continue | 11/03/19 | | 100 | | | at 100 mL/hr, Intravenous, | d Bag | 20 2:02 | | mL/hr | | | CONTINUOUS, Starting 11/03/19 | | PM PDT | | | | | at 1345, 2 liters then | | | | | | | discontinue, Post-op/Phase II | | | | | | + + + +---+-------+---+ +---+---+ | | | +---+---+ + + [...] PDT | | | | +---------+ +---+-------+---+ + +---+ | | | + +---+ | magnesium hydroxide (MILK OF | | | MAGNESIA) 400 mg/5 mL suspension | | | 30 mL 30 mL, Oral, NIGHTLY PRN, | | | Constipation, Starting Franca | | | 11/05/19 at 0000, If docusate, | | | senna, and polyethylene glycol | | | ineffective x 24 hours or not | | | ordered, Post-op/Phase II | | + +---+ | | | + +---+ | morphine injection 1-2 mg 1-2 | | | mg, Intravenous, EVERY 1 HOUR | | | PRN, Pain, Starting 11/03/19 | | | at 1322, If oral route not an | | | option. Slow IV push, not faster | | | than 2mg/minute. First dose must | | | be lowest dose, titrate to | | | effective dose by repeat of | | | lowest dose every 30 minutes prn | | | pain, may not exceed maximum dose | | | ordered per interval. Use | | | Pasero Sedation Scale., | | | Post-op/Phase II | | + +---+ | | | + +---+ | ondansetron (ZOFRAN ODT) | | | disintegrating tablet 4 mg 4 mg, | | | Oral, EVERY 6 HOURS PRN, Nausea, | | | Vomiting, Starting 11/03/19 | | | at 1322, First line agent, | | | Post-op/Phase II | | + +---+ | | | + +---+ | ondansetron (ZOFRAN) injection | | | 4 mg 4 mg, Intravenous, EVERY 6 | | | HOURS PRN, Nausea, Vomiting, | | | Starting 11/03/19 at 1322, | | | First line agent Use PO option | | | unless NPO status or unable to | | | tolerate, Post-op/Phase II | | + +---+ | | | + +---+ | oxyCODONE (ROXICODONE) tablet | | | 2.5-10 mg 2.5-10 mg, Oral, EVERY | | | 3 HOURS PRN, Pain, Starting Tue | | | 11/03/19 at 1322, First dose must | | | be the lowest dose, can titrate | | | to effective dose by repeat of | | | lowest dose every 60 minutes prn | | | pain, may not exceed maximum dose | | | ordered per interval. Use Pasero | | | Sedation Scale., Post-op/Phase | | | II | | + +---+ | | | + +---+ + +-------+ +-------+---+---+ | pantoprazole (PROTONIX) DR | Given | 11/04/19 | 40 mg | | | | tablet 40 mg 40 mg, Oral, DAILY | | 20 6:30 | | | | | BEFORE BREAKFAST, First dose on | | AM PDT | | | | | 11/03/19 at 1345, Do not cut | | | | | | | or crush., Indication: GERD | | | | | | + +-------+ +-------+---+---+ +-------+ +-------+---+---+ | Given | 11/03/19 | 40 mg | | | | | 20 2:31 | | | | | | PM PDT | | | | +-------+ +-------+---+---+ +---+---+ | | | +---+---+ + +---------+ +---------+---+ + | scopolamine (TRANSDERM-SCOP) 1 | Patch | 11/03/19 | 1 patch | | Ear-Behi | | mg/3 days 1 patch 1 patch, | Applied | 20 8:49 | | | nd Right | | Transdermal, PRN, adult patients | | AM PDT | | | | | with history of PONV, Starting | | | | | | | 11/03/19 at 0833, For 1 dose, | | | | | | | PRN for adult patients <65 yo | | | | | | | with history of PONV. Hold for | | | | | | | patients with glaucoma, dementia, | | | | | | | altered mental status, or | | | | | | | history of allergy to | | | | | | | Scopolamine. Apply to mastoid | | | | | | | process behind ear. Each patch is | | | | | | | designed to deliver 1 mg over 3 | | | | | | | days. DO NOT CUT patch., Pre-op | | | | | | + +---------+ +---------+---+ + +---+---+ | | | +---+---+ + +-------+ +--------+---+---+ | senna (SENOKOT) tablet 8.6 mg | Given | 11/04/19 | 8.6 mg | | | | 8.6 mg, Oral, 2 TIMES DAILY, | | 20 8:46 | | | | | First dose on Sat11/03/19 at | | AM PDT | | | | | 1345, If docusate ineffective or | | | | | | | not ordered, Post-op/Phase II | | | | | | + +-------+ +--------+---+---+ +-------+ +--------+---+---+ | Given | 11/03/19 | 8.6 mg | | | | | 20 9:12 | | | | | | PM PDT | | | | +-------+ +--------+---+---+ | Given | 11/03/19 | 8.6 mg | | | | | 20 2:31 | | | | | | PM PDT | | | | +-------+ +--------+---+---+ + +---+ | | | + +---+ | sodium chloride 0.9% (NS) | | | infusion at 10-100 mL/hr, | | | Intravenous, CONTINUOUS, Starting | | | Sat11/03/19 at 0900, TKO. Use | | | this instead of LR if patient is | | | on dialysis., Pre-op | | + +---+ | | | + +---+ + +-------+ +--------+---+---+ | timolol maleate (TIMOPTIC) 0.5% | Given | 11/04/19 | 1 drop | | | | ophthalmic solution 1 drop 1 | | 20 8:46 | | | | | drop, Right Eye, DAILY, First | | AM PDT | | | | | dose on Sat11/03/19 at 1345 | | | | | | + +-------+ +--------+---+---+ +---+---+ | | | +---+---+ documented in this encounter
--- OUTSIDE RECORDS SUMMARY | ~2019-11-18 | XMS | Encounter Summary ---
Demographics + + + | Address | [address] | | | [place] [address] | + + + | Home Phone | | + + + | Preferred Language | Unknown | + + + | Marital Status | | + + + | Congregational Affiliation | Unknown | + + + | Race | Unknown | + + + | Ethnic Group | Unknown | + + + Author + + + | Author | [facility] | | | and Bhupinderana | + + + | Organization | [facility] | | | and Bhupinderana [...] [place], [place] | | | | | [address] | | + + + + + Care Team Providers + +------+ + | Care Sound Truck Operator Name | Role | Phone | + [...] | | | | knee | | [address] | | | | | Procedures | | Phone: | | | | | FL TOTAL | | [phone] | | | | | KNEE | | Fax: | | | | | ARTHROPLASTY | | [phone] | | | | | Right | | | | | | | total knee | | | | | | | arthroplasty | | | +--------+--------+ + + + + Encounter Details +--------+---------+ + + + | Date | Type | Department | Care Team | Description | +--------+---------+ + + + | 11/02/ | Surgery | [facility] | Samson Xiao MD | Right total knee | | 2019 | | MED CTR OR [facility] | [address] | arthroplasty | | | | [address] | [place] | | | | | [place] | [address] | | | | | [address] | [phone] | | | | | [phone] | | | +--------+---------+ + + + [...] + + + | Blood Pressure | 158/74 | 11/03/2019 12:00 PM | | | | | PDT | | + + + + + | Pulse | 72 | 11/03/2019 12:00 PM | | | | | PDT | | + + + + + | Temperature | 36.8 C (98.2 F) | 11/03/2019 11:50 AM | | | | | PDT | | + + + + + | Respiratory Rate | 10 | 11/03/2019 12:00 PM | | | | | PDT | | + + + + + | Oxygen Saturation | 100% | 11/03/2019 12:00 PM | | | | | PDT | | + + + + + | Inhaled Oxygen | - | - | | | Concentration | | | | + + + + + | Weight | 83.7 kg (184 lb 8.4 | 11/03/2019 8:00 AM | | | | oz) | [...] this encounter Discharge Instructions Instructions Kay Salmeron, Luis - 11/02/2019 Your post op appointment is scheduled for 11/11 at 11:00 am. Please check in at 10 :30 am for X-rays at the [facility]. Discharge Instructions for Total KNEE Replacement [...] can search for public disposal locations at [email or web address]/[email or web address] RISKS OF MISUSE AND OVERDOSE ? When [...] 2 tablets | 30 | 0 | 07//20 | | | HYDROcodone-acetamin | by mouth [...] + + + +---------+ + + | Excelsior-3 Fatty | Take by mouth Daily | [...] Samson Xiao MD - 11/03/2019 9:40 [facility] INTERIM HISTORY AND PHYSICAL [...] Samson Xiao MD, 11/03/2019 9:40 AM PDT [facility] Electronically signed by Samson Xiao [...] Plain films obtained today show advanced bicompartmental ksjf-ve-ovgi arthrosi s of the right knee. A/P) [...] Meds ?? Aspirin 81 MG TABS; Therapy: (Recorded:[id number]) to Recorded ?? Calcium 500 MG CHEW; Therapy: [id number] to Recorded ?? Celecoxib 400 MG Oral Capsule; TAKE 1 CAPSULE BY MOUTH EVERY DAY; Therapy: [id number] to (Evaluate:08Trb2009) Requested for: 27Apr2019; Last Rx:27Apr2019; Status: ACTIVE - Retrospective By Protocol Authorization Ordered ?? Fish Oil 1200 MG Oral Capsule; Therapy: [id number] to Recorded ?? Fosamax TABS; Therapy: (Recorded:[id number]) to Recorded ?? Glucosamine 1500 Complex Oral Capsule; Therapy: [id number] to Recorded ?? Ipratropium [place] 0.03 % Nasal Solution; INSTILL TWO SPRAYS IN EACH NOSTRIL 2 TO 3 TIMES DAILY; Therapy: 17Feb2015 to (Last Rx:[id number]) Requested for: [id number] Ordered ?? Multi-Vitamin/Minerals Oral Tablet; Therapy: [id number] to Recorded ?? Pantoprazole Sodium 40 MG Oral Tablet Delayed Release; TAKE 1 TABLET BY MOUTH 30 MINUTES BEFORE BREAKFAST DAILY; Therapy: [id number] to (Last Rx:[id number]) Requested for: 26Aug2019; Status: ACTIVE - Renewal Denied Ordered ?? Timolol Maleate 0.5 % Ophthalmic Solution; Therapy: (Recorded:[id number]) to Recorded ?? Vitamin D 1000 UNIT TABS; Therapy: 68Cbm0861 to Recorded Allergies ?? Sulfa Drugs Vitals [...] this encounte r Miscellaneous Notes Plan of Deangelo - Cecille Obregon RN - 11/04/2019 1:16 PM PDTPatient transported home with . Discharge instructions given by pharmacy. TONYN Trevor given. lan of Care - Zehra Spicer PTA - 11/04/2019 11:39 [...] HOB elevated Supine to Sit, Level of [place]: modified independent Sit to Supine, Level of [place]: modified independent Safety Issues: decreased use of legs for bridging/pushing Impairments: pain, impaired balance Transfers Transfers Comments: Patient able to complete without physical assistance. demostrated good technique and safety awareness. Sit-Stand, Level of [place]: modified independent Stand-Sit, Level of [place]: modified independent Bih-Bhbxp-Twc, Assistive Device: 2 wheeled walker (FWW) Impairments: strength decreased, impaired balance, pain Gait Gait Comments: Patient able to ambulate with FWW and verbal cues for technique. no buckling . Level of [place]: stand by assist Assistive Device: 2 wheeled walker (FWW) Distance (feet): 25 ft, 100 ft Additional Documentation: stairs (group) Stairs Stairs, Comment: completed 4 steps with bilateral rail. education for sequence and techniqu e Number of Stairs: 4 Handrail Location: both sides Level of [place]: contact guard assist Assistive Device: 2 rails [...] LTG Status met at 11/04/2019 1139 LTG [place] Level modified independent at 11/03/2019 1323 LTG Assistive Device bed rails, HOB elevated at 11/03/2019 1323 Rsj-Iuctz-Cpu Goal Most Recent Value LTG Status progressing at 11/04/2019 1139 LTG [place] Level modified independent at 11/03/2019 1323 LTG Assistive Device 2 wheeled walker (FWW) at 11/03/2019 1323 Bbi-Gjlrg-Onu Goal Most Recent Value LTG Status progressing at 11/04/2019 1139 LTG [place] Level modified independent at 11/03/2019 1323 LTG Assistive Device 2 wheeled walker (FWW) at 11/03/2019 1323 Gait Goal Most Recent Value LTG Status progressing at 11/04/2019 1139 LTG [place] Level modified independent at 11/03/2019 1323 LTG Assistive Device 2 wheeled walker (FWW) at 11/03/2019 1323 LTG Distance (feet) 150 at 11/03/2019 1323 Stair Goal Most Recent Value LTG Status progressing at 11/04/2019 1139 LTG [place] Level modified independent at 11/03/2019 1323 LTG [...] progressing Pt alert and oriented x4. PRN [place] given for pain. 2P assist w/ fww. IV RFA saline lock. L BM 11/02. Voided without difficulty. Lungs clear. CPAP at night. RT knee incision clean, pink , with approximated edges. Cleansed with alcohol. Hydrocolloid dressing applied. CMS intact. Polar care and compression socks on.Electronically signed by Cecille Obregon RN at 2019 11:46 AM PDTPlan [facility] Meg Hoy[facility] MSW - 11/04/2019 11:25 AM PDTAnibal to see [facility] to discuss discharge planning. Patient lives in [place] with her . She has 2 steps to get into her home, it is a one level home. Patient was independent with ADL's prior to admission. Patient has her FWW in the room with her. Patient was not on home oxygen, did not have a Cpap. Patient's shower is a walk in shower with a seat. Pharmacy is [facility] in [place], PCP is Dr. Wesley, will provide transportation at [facility]. Patient denied any additional needs or services at home. Plan: Home with Electronically signed by: SARTHAK Salgado 11/04/2019 1:46 PM PDT lan of Care - L[place]ilas, Kathryn Gomez, OT - 9:30 AM PDT Occupational Therapy [...] sink to wash hands. Grooming, Level of [place]: modified independent Assistive Device: none Grooming Assess/Train, Position: standing Grooming Impairments: pain Upper Body Dressing Assessment/Training UB Dressing Assess/Train, Comment: mod I in sitting. UB Dressing, Level of [place]: modified independent Assistive Device: none UB Dressing Assess/Train, Position: sitting UB Dressing Impairments: ROM decreased Lower Body Dressing Assessment/Training LB Dressing Assess/Train, Comment: mod I. initial education for sequencing for LB dressing. no assist. LB Dressing, Level of [place]: modified independent Assistive Device: none LB Dressing Assess/Train, Position: sitting, standing LB Dressing Impairments: pain Toileting Assessment/Training Toileting Assess/Train, Comment: mod I with hygiene and clothing management. Toileting, Level of [place]: modified independent Assistive Device: grab bar Bed Mobility Additional Documentation: supine to/from sit Supine to Sit, Level of [place]: modified independent Sit to Supine, Level of [place]: modified independent Sidelying to Sit, Level of [place]: modified independent Sit to Sidelying, Level of [place]: modified independent Safety Issues: decreased use of legs for bridging/pushing Impairments: pain, impaired balance Transfers Transfers Comments: mod I for functional t/fs in room. no physical assist. Additional Documentation: sit to/from stand, toilet, bed to/from chair Bed-Chair, Level of [place]: modified independent Chair-Bed, Level of [place]: modified independent Vis-Kpgxp-Ovh, Assistive Device: 2 wheeled walker (FWW) Sit-Stand, Level of [place]: modified independent Stand-Sit, Level of [place]: modified independent Eov-Ffafz-Zbx, Assistive Device: 2 wheeled walker (FWW) Toilet, Level of [place]: modified independent Toilet, Assistive Device: 2 wheeled [...] education to promote safety and independence at [facility]. at 11/04/2019 0930 Date of Surgery: 11/03/19 [...] 7:40 AM PDTIntroduced myself to patient as surgery specialist for Total Joints. Discussed with patient my role as RN Joint Navigator and how we can help with their total joint recovery. Pt. Joint journey plan remains the same, home with support college coach. Informed patient they would be receiving a phone call from me 24-72 hours after the y are discharge from the hospital. Informed patient I am a resource for them (business card given) and will be following them for 90 days after discharge from hospital. Patient reports she has a walker with her in the room. Reviewed discharge plan: Support college coach his Bruce, discharge to home out patient colton cesar. lan of Care - Libby Sheppard RN - 11/04/2019 4:49 AM PDTPt pain managed well with PRN NORCO x2, denies naus ea at this time. Pt up to void in BSC. Dressing to right knee is CDI with polar care in plac e. Pt is A&o x4 and calls appropriately for help. VSS on 2L 02 via CA. lan of Annmarie Deleon RRT - 11/04/2019 [...] 4:23 PM PDTPlan of Care - Rajesh Swenson PT - 11/03/2019 2:03 PM PDT [facility] Physical Therapy OPIB Plan of Care [...] and receptive to education. She [place] [facility] [place] and uneventfully stepped and [...] bed rails Supine to Sit, Level of [place]: minimal assist (75% patient effort) Sit to Supine, Level of [place]: minimal assist (75% patient effort) Sidelying to Sit, Level of [place]: minimal assist (75% patient effort) Sit to Sidelying, Level of [place]: minimal assist (75% patient effort) Safety Issues: decreased use of arms for pushing/pulling, decreased use of legs for bridgin g/pushing Impairments: impaired balance, strength decreased, sensation decreased, muscle tone abnorma l, decreased flexibility Transfers 2P required due to Active sensory and motor nerve block R knee, 2P min A to BSC and back to bed Sit-Stand, Level of [place]: minimal assist (75% patient effort), 1 person + 1 person to manage equipment Stand-Sit, Level of [place]: minimal assist (75% patient effort), 1 person + 1 person to manage equipment Cfn-Voykp-Ecr, Assistive Device: 2 wheeled walker (FWW) Gait 2P required due to Active sensory and motor nerve block R knee, Level of [place]: minimal assist (75% patient effort) Assistive Device: [...] LTG Status new at 11/03/2019 1323 LTG [place] Level modified independent at 11/03/2019 1323 LTG Assistive Device bed rails, HOB elevated at 11/03/2019 1323 Juc-Flyno-Uns Goal Most Recent Value LTG Status new at 11/03/2019 1323 LTG [place] Level modified independent at 11/03/2019 1323 LTG Assistive Device 2 wheeled walker (FWW) at 11/03/2019 1323 Fxk-Zjfql-Kwd Goal Most Recent Value LTG Status new at 11/03/2019 1323 LTG [place] Level modified independent at 11/03/2019 1323 LTG Assistive Device 2 wheeled walker (FWW) at 11/03/2019 1323 Gait Goal Most Recent Value LTG Status new at 11/03/2019 1323 LTG [place] Level modified independent at 11/03/2019 1323 LTG Assistive Device 2 wheeled walker (FWW) at 11/03/2019 1323 LTG Distance (feet) 150 at 11/03/2019 1323 Stair Goal Most Recent Value LTG Status new at 11/03/2019 1323 LTG [place] Level modified independent at 11/03/2019 1323 LTG [...] General LMA anesthesia Surgeon: Samson Xiao MD Hydrochloric Acid Operator: Shalini Farooq PA-C. Note the office assistance was necessary in performing t his procedure. [...] locked into the tibial baseplate with the user experience analyst. Tourniquet was de flated. Hemostasis was achieved [...] | [facility] | | | [facility] | | | | | | MEDICAL [...] [address] | [place] | [phone] | | [facility] | | [address] | | | - LABORATORY | | [...] [address] | [place] | [phone] | | [facility] | | [address] | | | - LABORATORY | | [...] Procedure Note | + + | Richard, [id number] - 11/03/2019 12:49 PM PDT XR KNEE [...] + | Diagnosis | + + | Unilateral primary osteoarthritis, right knee | + + documented in this encounter [...] DAILY PRN, Constipation, | | | Starting 11/03/19 at 1322, If | | | all [...] HOURS PRN, Itching, Starting | | | e 11/03/19 at 1322, Oral route | | [...] | | (NORCO) 10-325 mg per tablet 1-2 | | 20 1:08 | tablets | [...] | | (NORCO) 5-325 mg per tablet 1-2 | | 20 1:11 | tablets | [...] | mL/hr | | | CONTINUOUS, Starting Sat11/03/19 | | PM PDT | | | [...] | | | | | CONTINUOUS, Starting Sat11/03/19 | Anesthes | AM PDT | | [...] +---+---+ | | | +---+---+ + +-------+ +--------+---+ + | ropivacaine 123 mg-EPINEPHrine | Given | 11/03/19 | 50 mLs | | Surgical | | 0.25 mg-cloNIDine 0.04 | | 20 11:12 | | | Site | | mg-ketorolac 15 mg in NS 50 mL | | AM PDT | | | | | syringe PRN, Starting Tue | | | | | | | 11/03/19 at 1112, Intra-op | | | | | | + +-------+ +--------+---+ + +---+---+ | | | +---+---+ + +---------+ [...] | | | | | | | Sat11/03/19 at 0833, For 1 dose, | | [...] | Intravenous, CONTINUOUS, Starting | | | 11/03/19 at 0900, TKO. Use | | | [...] +---+---+ | | | +---+---+ + +-------+ +-----+---+ + | vancomycin injection PRN, | Given | 11/03/19 | 1 g | | Surgical | | Starting Sat11/03/19 at 1112, | | 20 11:12 | | | Site | | Intra-op | | AM PDT | | | | + +-------+ +-----+---+ + +---+---+ | | | +---+---+ documented in this encounter
--- OUTSIDE RECORDS SUMMARY | ~2019-11-18 | XMS | Encounter Summary ---
Demographics + + + | Address | [address] | | | [place] [address] | + + + | Home Phone | | + + + | Preferred Language | Unknown | + + + | Marital Status | | + + + | Confucianism Affiliation | Unknown | + + + | Race | Unknown | + + + | Ethnic Group | Unknown | + + + Author + + + | Author | [facility] | | | and Bhupinderana | + + + | Organization | [facility] | | | and Bhupinderana | + + + | Address | Unknown | + + + | Phone | Unavailable | + + + Support + + + + + | Name | Relationship | Address | Phone | + + + + + | Bruce Moscoso | ALEXANDER | [address] | | | | | [place], [place] | | | | | [address] | | + + + + + Care Team Providers + +------+ + | Care Kitchen Utility Associate Name | Role | Phone | + +------+ + | Gray Wesley MD | PCP | | + +------+ + Reason for Visit + +--------+ + | Reason | Onset | Comments | | | Date | | + +--------+ + | Hospital Discharge | 11/05/ | | | Follow-up | 2019 | | + +--------+ + Encounter Details +--------+ + + + + | Date | Type | Department | Care Team | Description | +--------+ + + + + | 11/05/ | Telephone | [facility] | Christine Walter, | Hospital Discharge | | 2019 | | [facility] SUR[facility]ICAL | RN | Follow-up | | | | [address] | | | | | | [place] [address] | | | | | | [phone] | | | +--------+ + + + [...] + + documented as of this encounter Miscellaneous Notes Telephone Encounter - Christine Walter RN - 11/06/2019 10:35 AM PDT Patient Name: Darline Moscoso : 1950 Gender: female Status Post right total knee Surgery date:11/03/2019 Surgeon: Dr. Xiao 24-72 hour Post Discharge call Pain Controled:yes Pain 1-10:4 = Nagging Uncomfortable Using OTC for pain: Acetaminaphen Narcotics:None, has stopped taking hydrocodone. Back to taking previous medications?: yes VTE/DVT prophylaxis: Aspirin dose 81mg BID Calf pain: No Appetite:fair Nausea:no Urinary Output:adequate Bowel Movement:Normal for patient now, was having constipation Bowel Regiment:Senna BID, miralax and prunes and drinking more liquids Pt. Understanding how to safely ambulate?: Using walker:yes How often out of bed: Up ambulating every hour for 10min Do breathing exercises?:yes/ Incision description: Clean, dry and intact How are you caring for you dressing:leaving dressing in place till post op office visit Swelling: between moderate to severe Icing:yes, reviewed she can ice for every hour for 20 min. At a time. Elevating:yes Doing home exercises:yes Fever:no Difficulty with showering:no Out Pt.Therapy: Yes, Saturday Post Op appt.: This with DR. Xiao Any need to call surgeon:no Patient understands when to seek emergency medical attention:yes Patient education reinforced using Teach-Back Method, review of discharge instructions incl uding s/s of potential complications to watch for and who to contact for further questions o r concerns. States all questions answered to their satisfaction. Christine Walter RN RN Nurse Navigator for Total Joints documented in this en counter Plan of Treatment Not on filedocumented as of this encounter Visit Diagnoses Not on filedocumented in this encounter"
--- OUTSIDE RECORDS SUMMARY | ~2019-11-18 | XMS | Encounter Summary ---
Demographics + + + | Address | [address] | | | [place] [address] | + + + | Home Phone | | + + + | Preferred Language | Unknown | + + + | Marital Status | | + + + | Confucianism Affiliation | Unknown | + + + | Race | Unknown | + + + | Ethnic Group | Unknown | + + + Author + + + | Author | [facility] | | | and Bhupinderana | + + + | Organization | [facility] | | | and Bhupinderana | [...] [place], [place] | | | | | [address] | | + + + + + Care Team Providers + +------+ + | Care Parts Advisor Name | Role | Phone | + +------+ + | Gray Wesley MD | PCP | | + +------+ + Reason for Visit + +--------+ + | Reason | Onset | Comments | | | Date | | + +--------+ + | Patient Education | 11/01/ | | | | 2020 | | + +--------+ + Encounter Details +--------+ + + + + | Date | Type | Department | Care Team | Description | +--------+ + + + + | 11/01/ | Telephone | [facility] | Christine Walter, | Patient Education | | 2019 | | MED CTR SURGICAL | RN | | | | | [address] | | | | | | [place] [address] | | | | | | [phone] | | | +--------+ + + + [...] Telephone Encounter - Christine Walter RN - 11/02/2019 12:59 PM PDTTotal Joint Replacement Education Reviewed with teach back for patient and care attendant ? Pain management tracking/ weaning narcotics; avoiding constipation; use of cold compr ess, elevation and rest. ? Safe mobility help at home; use of assistive devices ? Incision care hand hygiene; dressing/ site care and monitoring ? Clot prevention anticoagulant adherence ? Follow-up post-discharge phone calls and surgeon appointments Patient states understanding, no additional questions at this time Patient reports she has a walker and will bring it with her tomorrow and leave it in the ca r till she is up on the floor for PT to evaluate. Pt. reprots she has already viewed online [facility]FR[facility] education and at this time has no further qu estions. My contact numbers given to patient. 20 1:20 PM PDTdocumented in this encounter Plan of Treatment Not on filedocumented as of this encounter Visit Diagnoses Not on filedocumented in this encounter"
--- OUTSIDE RECORDS SUMMARY | ~2019-11-18 | XMS | Clinical Summary ---
Demographics + + + | Address | [address] | | | [place] [address] | + + + | Home Phone | | + + + | Preferred Language | Unknown | + + + | Marital Status | | + + + | Buddhist Affiliation | Unknown | + + + | Race | Unknown | + + + | Ethnic Group | Unknown | + + + Author + + + | Author | [facility] | | | and Bhupinderana | + + + | Organization | [facility] | | | and Bhupinderana | [...] [place], [place] | | | | | [address] | | + + + + + Care Team Providers + +------+ + | Care Maintenance Repairer Name | Role | Phone | + +------+ + | Gray Wesley MD | PCP | | + +------+ + Allergies + + + + + + | Active Allergy | Reactions | Severity | Noted | Comments | | | | | Date | | + + + + + + | Lactose | Diarrhea, GI Upset | Low | 07/20/20 | | | | | | 20 | | + + + + + + | Sulfa Antibiotics | Unknown | | 11/02/19 | I don't know. I | | | | | 20 | was very young. | + + + + + + Medications + + + +---------+------+------+-------+ | Medication | Sig | Dispensed | Refills | Star | End | Statu | | | | | | t | Date | s | | | | | | Date | | | + + + +---------+------+------+-------+ | Calcium Carbonate | Take by mouth. | | 0 | | | Activ | | (CALCIUM 500 PO) | | | | | | e | + + + +---------+------+------+-------+ | celecoxib | Take 400 mg by mouth | | 0 | | | Activ | | (CELEBREX) 400 MG | Daily . | | | | | e | | capsule | | | | | | | + + + +---------+------+------+-------+ | Eagar-3 Fatty | Take by mouth Daily | | 0 | | | Activ | | Acids (FISH OIL) | . | | | | | e | | 1200 MG CAPS | | | | | | | + + + +---------+------+------+-------+ | ipratropium | 2 sprays by Nasal | | 0 | | | Activ | | (ATROVENT) 0.03% | route Daily as | | | | | e | | nasal spray | needed . | | | | | | + + + +---------+------+------+-------+ | Multiple | Take by mouth. | | 0 | | | Activ | | Vitamins-Minerals | | | | | | e | | (MULTIVITAMIN ADULTS | | | | | | | | PO) | | | | | | | + + + +---------+------+------+-------+ | pantoprazole | Take 40 mg by mouth | | 0 | | | Activ | | (PROTONIX) 40 mg | every morning | | | | | e | | tablet | (before breakfast). | | | | | | + + + +---------+------+------+-------+ | Timolol Maleate | Apply 1 drop to eye | | 0 | | | Activ | | 0.5 % (DAILY) SOLN | Daily Right eye. | | | | | e | + + + +---------+------+------+-------+ | cholecalciferol | Take 50 mcg by mouth | | 0 | | | Activ | | (VITAMIN D-3) 25 mcg | Daily . | | | | | e | | (1,000 units) | | | | | | | | tablet | | | | | | | + + + +---------+------+------+-------+ | Lutein-Zeaxanthin | Take 1 tablet by | | 0 | | | Activ | | 25-5 MG CAPS | mouth Daily. | | | | | e | + + + +---------+------+------+-------+ | COLLAGEN-VITAMIN C | Take 1 tablet by | | 0 | | | Activ | | PO | mouth Daily. | | | | | e | + + + +---------+------+------+-------+ | acetaminophen | Take 650 mg by mouth | | 0 | | | Activ | | (TYLENOL) 325 mg | every 4 hours as | | | | | e | | tablet | needed for Pain. | | | | | | + + + +---------+------+------+-------+ | aspirin (ASPIRIN | Take 1 tablet by | 56 | 0 | / | 08 | Activ | | ADULT LOW STRENGTH) | mouth 2 times daily | tablet | | 06/04 | 01/02 | e | | 81 MG EC tablet | for 28 days. | | | 20 | 20 | | + + + +---------+------+------+-------+ | | Take 1 - 2 tablets | 30 | 0 | 07/2 | | Activ | | HYDROcodone-acetamin | by mouth EVERY 4 to | tablet | | 2/20 | | e | | ophen (NORCO) | 6 HOURS NEEDED | | | 20 | | | | 7.5-325 mg per | for Pain.. | | | | | | | tablet | | | | | | | + + + +---------+------+------+-------+ | aspirin 81 mg EC | Take 81 mg by mouth | | 0 | | 07/2 | Disco | | tablet | Daily. | | | | 0/20 | ntinu | | | | | | | 20 | ed | | | | | | | | (Ther | | | | | | | | apy | | | | | | | | compl | | | | | | | | eted) | + + + +---------+------+------+-------+ | alendronate | Take 10 mg by mouth | | 0 | | 07/2 | Disco | | (FOSAMAX) 10 mg | every morning | | | | 0/20 | ntinu | | tablet | (before breakfast). | | | | 20 | ed | | | | | | | | (Ther | | | | | | | | apy | | | | | | | | compl | | | | | | | | eted) | + + + +---------+------+------+-------+ | | Take by mouth. | | 0 | | 10/14 | Disco | | Glucosamine-Chondroi | | | | | 0/20 | ntinu | | t-Vit C-Mn | | | | | 20 | ed | | (GLUCOSAMINE 1500 | | | | | | (Ther | | COMPLEX PO) | | | | | | apy | | | | | | | | compl | | | | | | | | eted) | + + + +---------+------+------+-------+ Active Problems Not on file Encounters +--------+ + + + + | Date | Type | Specialty | Care Team | Description | +--------+ + + + + | 11/05/ | Telephone | | Christine Walter, | Hospital Discharge | | 2020 | | | RN | Follow-up | +--------+ + + + + | 11/02/ | Anesthesia | | Hemant Amador, | | | 2019 | Event | | Keenan Purcell | | | | | | MD Letty | | +--------+ + + + + | 11/02/ | Surgery | | Samson Xaio MD | Right total knee | | 2019 | | | | arthroplasty | +--------+ + + + + | 11/02/ | Hospital | | Samson Xiao MD | S/P total knee | | 2019 - | Encounter | | | arthroplasty, right | | | | | | (Primary Dx) | | 11/03/ | | | | | | 2019 | | | | | +--------+ + + + + | 11/01/ | Telephone | | Christine Walter, | Patient Education | | 2019 | | | RN | | +--------+ + + + + from Last 3 Months Social History + +-------+ +--------+------+ | Tobacco [...] on file | | + + + Last Filed Vital Signs + + + [...] | | + + + + + Plan of Treatment + + + + + | Health Maintenance | Due Date | Last | Comments | | | | Done | | + + + + + | Hepatitis C | | | | | Screening | 1 | | | + + + + + | Med Mgmt: BUN | | | | | | 1 | | | + + + + + | Med Mgmt: Cr | | | | | | 1 | | | + + + + + | Med Mgmt: Vit D | | | | | | 1 | | | + + + + + | Medication | | | | | Management | 1 | | | + + + + + | Vaccine: | | | | | Dtap/Tdap/Td (1 - | 0 | | | | Tdap) | | | | + + + + + | Colorectal Cancer | | | | | Screening | 1 | | | | (Colonoscopy) | | | | + + + + + | Breast Cancer | | | | | Screening | 6 | | | + + + + + | Vaccine: | | | | | Pneumococcal 65+ (1 | 6 | | | | of 1 - PPSV23) | | | | + + + + + | Adult Annual | | | | | Wellness Visit | 0 | | | + + + + + | Vaccine: Influenza | | 02/03/20 | | | (#1) | 0 | 19, | | | | | 01/15/20 | | | | | 18, | | | | | 01/29/20 | | | | | 14, | | | | | Addition | | | | | al | | | | | history | | | | | exists | | + + + + + | Vaccine: Zoster | Completed | 04/29/19 | | | | | 20, | | | | | 02/25/20 | | | | | 19, | | | | | 02/06/20 | | | | | 08 | | + + + + + Implants + +--------+--------+ +--------+--------+--------+ | Implanted | Type | Area | Manufacture | Device | Shelf | Model | | | | | r | | Expira | / | | | | | | Identi | tion | Serial | | | | | | fier | Date | / Lot | + +--------+--------+ +--------+--------+--------+ | Imp Knee Tib 5deg Rt Szd - | Generi | Right: | CHRIS - | | 06/12/ | [id number] | | [id number]: Qty: 1 | c | Knee | ZIMM | | 2030 | [id number] | | on 11/03/2019 by Samson Xaio | | | | | | / | | MD Timmy at [facility] | | | | | | /[id number] | | [facility] | | | | | | 811 | + +--------+--------+ +--------+--------+--------+ | Imp Knee Stem Fem Rt 0 Sz7 - | Generi | Right: | CHRIS - | | 06/12/ | [id number] | | [id number]: Qty: 1 | c | Knee | ZIMM | | 2030 | [id number] | | on 11/03/2019 by Samson Xiao | | | | | | / | | MD Timmy at [facility] | | | | | | /[id number] | | [facility] | | | | | | 259 | + +--------+--------+ +--------+--------+--------+ | Imp Knee Ptela Polyeth 32mm - | Generi | Right: | CHRIS - | | 10/12/ | 42-540 | | [id number]: Qty: 1 | c | Knee | ZIMM | | 2027 | 0-000- | | on 11/03/2019 by Samson Xiao | | | | | | 32 / | | MD Timmy at [facility] | | | | | | /[id number] | | [facility] | | | | | | 213 | + +--------+--------+ +--------+--------+--------+ | Imp Knee Surf [facility] 10 Rt3-7 | Generi | Right: | CHRIS - | | 01/12/ | 42-522 | | Cd - [id number]: | c | Knee | ZIMM | | 2023 | 2-004- | | Qty: 1 on 11/03/2019 by | | | | | | 10 / | | Samson Xiao MD at [facility] | | | | | | /[id number] | | [facility] | | | | | | 509 | | CENTER | | | | | | | + +--------+--------+ +--------+--------+--------+ | Merlin Bone Palacos-R Hv 40 - | | Right: | HERAEUS - | | 06/12/ | [id number] | | [id number]: Qty: 1 on | | Knee | MOHSEN | | 2022 | /A | | 11/03/2019 by Samson Xiao, | | | | | | | | at [facility] | | | | | | /[id number] | | [facility] | | | | | | 863 | + +--------+--------+ +--------+--------+--------+ Procedures + +--------+ + + + | [...] Needs | | | | | | Chris | | | total | | | [...] results section. | + +---+ +---+ + from Last 3 Months Results Extra Green Top Tube (11/04/2019 6:04 [...] ST. | [address] | [place] | [phone] | | [facility] | | [address] | | | - LABORATORY | | [...] ST. | [address] | [place] | [phone] | | [facility] | | [address] | | | - LABORATORY | | [...] Procedure Note | + + | Richard, [id number] - 11/03/2019 12:49 PM PDT XR KNEE [...] | | | + +---------+ + + Airway (11/03/2019 10:50 AM PDT) + + [...] MD | | | Comments: Kyle Macedo MSEmili Please see intraoperative grid | | | [...] Gabriel MD Authorizing provider: Keenan Gabriel MD Warehouse Forklift Operator: Kyle Macedo MS4 | | + + + LABS - EXTERNAL SCAN (10/31/2019 12:00 AM PDT)Only the most recent of 2 results within the time period is included. + + + | Narrative | Performed At | + + + | Ordered by an | | | unspecified provider. | | + + + ECG - EXTERNAL SCAN (10/13/2019 12:00 AM PDT) + + + | Narrative | Performed At | + + + | Ordered by an | | | unspecified provider. | | + + + from Last 3 Months Insurance + +--------+ +--------+ [...] + +--------+ | MEDICARE | MEDICA | [id number] | 07/15/19 | [phone] | | Medica | | | RE | | 16-Pre | 5 | | re | | | PART A | | sent | | | | | | AND B | | | | | | + +--------+ +--------+ + +--------+ | MODA | MODA | [id number] | 04/15/19 | [phone] | [address] | Indemn | | | HEALTH | | 19-Pre | 9 | [address] | ity | | | MDCR | | sent | | [place], | | | | [place] | | | | [place] [address] | | + +--------+ +--------+ + +--------+ [...] | [birth year] | | [address] | | | al/Fam | | 1951 | [phone] | [place] [address] | | | renetta | | | 0 (Home) | | + +--------+ +--------+ + + Advance Directives + + + + + | Type | Date Recorded | Patient | Explanation | | | | Flower Maker | | + + + + + | Power of | | | | | Rn Training | | | | + + + + + | Advance | 11/03/2019 7:42 | | @ home | | Directive | AM | | | + + + + + + + + + + | Code Status | Date | Date | Comments | | | Activated | Inactivated | | + + + + + | Full Code | 11/03/2019 | 11/04/2019 | | | | 1:22 PM | 3:25 PM | | + + + + +
--- OUTSIDE RECORDS SUMMARY | ~2019-11-18 | XMS | Encounter Summary ---
Demographics + + + | Address | [address] | | | [place] [address] | + + + | Home Phone | | + + + | Preferred Language | Unknown | + + + | Marital Status | | + + + | Yazidi Affiliation | Unknown | + + + | Race | White | + + + | Ethnic Group | Not or | + + + Author + + + | Author | [facility] | + + + | Organization | [facility] | + + + | Address | Unknown | + + + | Phone | Unavailable | + + + Support + + + + + | Name | Relationship | Address | Phone | + + + + + | Bruce Moscoso | ALEXANDER | [address] | | | | | [place] | | | | | [address] | | + + + + + Care Team Providers + +------+ + | Care Ripsaw Matcher Name | Role | Phone | + +------+ + | Alvin Alejandre MD | PCP | | + +------+ + Reason for Visit + + + | Reason | Comments | + + + | Follow-up visit | | + + + Benefits Check (Routine) +--------+--------+ + + + + | Status | Reason | Specialty | Diagnoses / | Referred By | Referred To | | | | | Procedures | Contact | Contact | +--------+--------+ + + + + | Closed | | Ophthalmology | | Non-[facility] | Y[place], | | | | | | Epic Dept | MD Taya | | | | | | | [address] | | | | | | | [address] | | | | | | | [place], [place] | | | | | | | [address] | | | | | | | Phone: | | | | | | | [phone] | | | | | | | Fax: | | | | | | | [phone] | +--------+--------+ + + + + Encounter Details +--------+---------+ + + + | Date | Type | Department | Care Team | Description | +--------+---------+ + + + | 10/14/ | Office | [facility] | Taya Lynne, | Macular hole, right | | 2018 | Visit | [facility] at | [address] | eye (Primary Dx); | | | | [facility] [address] | [address] | PCO (posterior | | | | [address] | [place], [place] | capsular | | | | Eye [place], [facility] | [address] | opacification), | | | | floor [place], [place] | [phone] | right | | | | [address] | | [...] documented as of this encounter Progress Notes Agustin Townsend MD - 10/14/2018 3:15 PM PDT [facility] Progress Note 10/14/2018 68 y.o. 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 Juaquin Michael ([facility] [place], [place]) for YAG capsuloto my Call for decreased vision, increased distortion, increased pain, new floaters or flashing l ights Follow up: Return if symptoms worsen or fail to improve. Chief Complaint: Follow-up visit HPI (Edited by physician):Evaluate for ERM, right eye Macular hole, right eye Hx of: PPV right eye 03/26/2016 PPV, right eye with phaco 06/11/2016 Visions decreased "muddled" right eye Denies pain Reports new floater, right eye Denies flashes of light Ocular meds: Timolol daily, right eye - today Refresh AT (gel) prn Current Outpatient Medications (Ophthalmic Medications) Medication Sig timolol once daily Instill 1 drop into the right eye once daily. Current Outpatient Medications (Other) Medication Sig BIOTIN ORAL Take by mouth. celecoxib TK 1 C PO D ipratropium MEDICATION HELP Indications: calcium, fish oil, lutein & zeaxanthin, Vitamin D, MV pantoprazole Take 40 mg by mouth before breakfast. Reviewed: Tobacco | Allergies | Meds | Problems | Med Hx | Surg Hx | Fam Hx | Soc Hx Examination: See Ophthalmology Module Attestations: The database software technician, under the supervision of the physician, is responsible for performing the f ollowing sections: RFV, ROS, PMH, PSH, SocHx, FH, Med list, Base Ophth Exam. The attending physician is responsible for the entire content of the note and has personall y performed the HPI and the physical examination TAYA LYNNE MD documented in this encounter Plan of Treatment Not on filedocumented as of this encounter Procedures + +--------+ + + + | Procedure Name | Priori | Date/Time | Associated Diagnosis | Comments | | | ty | | | | + +--------+ + + + | OCT, RETINA | Routin | 10/14/2018 | Macular hole, | Results for this | | | e | 4:18 PM | right eye | procedure are in the | | | | PDT | | results section. | + +--------+ + + + documented in this encounter Results OCT, RETINA (10/14/2018 4:18 PM PDT) + + + | Narrative | Performed At | + + + | Water Control Supervisor | [facility] | | DocumentationRight EyeQuality: good Central macular thickness: | [facility] | | 241 Segmentation: accurate Additional information: ALANNA Left | | | EyeQuality: good Central macular thickness: 267 Segmentation: | | | accurate Additional information: ALANNA Provider DocumentationRight | | | EyeContour: unchanged Retinal findings: Outer retinal atrophy, | | | Closed hole Left EyeContour: normal macula | | | | | | | | |Left Eye | | |Quality: good | | | | | |Central macular thickness: 267 | | |Segmentation: accurate | | |Additional information: ALANNA | | | | | | | | |Provider Documentation | | |Right Eye | | |Contour: unchanged | | |Retinal findings: Outer retinal atrophy, Closed hole | | | | | | | | |Left Eye | | |Contour: normal macula | | + + + + + + + + | Performing | Address | City/State/Zipcode | Phone Number | | Organization | | | | + + + + + | [facility] | [address] | [place] [address] | | | [place] | [place]. | | | + + + + + documented in this encounter Visit Diagnoses + + | Diagnosis | + + | Macular hole, right eye - Primary Macular cyst, hole, or pseudohole of retina | + + | PCO (posterior capsular opacification), right After-cataract, unspecified | + + documented in this encounter
--- OUTSIDE RECORDS SUMMARY | ~2019-11-18 | XMS | Encounter Summary ---
Demographics + + + | Address | [address] | | | [place] [address] | + + + | Home Phone | | + + + | Preferred Language | Unknown | + + + | Marital Status | | + + + | Baptist Affiliation | Unknown | + + + | Race | White | + + + | Ethnic Group | Not or | + + + Author + + + | Author | [facility] | + + + | Organization | [facility] | + + + | Address | Unknown | + + + | Phone | Unavailable | + + + Support + + + + + | Name | Relationship | Address | Phone | + + + + + | Bruce Moscoso | ALEXANDER | [address] | | | | | [place] | | | | | [address] | | + + + + + Care Team Providers + +------+ + | Care Customer Support Professional Name | Role | Phone | + [...] | | | | | | | [place], [place] | | | | | | | [address] | | | | | | | Phone: | | | | | | | [phone] | | | | | | | Fax: | | | | | | | [phone] | +--------+--------+ + + + + Encounter Details +--------+---------+ + + + | Date | Type | Department | Care Team | Description | +--------+---------+ + + + | 10/14/ | Office | [facility] | Taya Lynne, | Macular hole, right | | 2018 | Visit | [facility] at | [address] | eye (Primary Dx); | | | | [facility] [address] | [address] | PCO (posterior | | | | [address] | [place], [place] | capsular | | | | Eye [place], [facility] | [address] | opacification), | | | | floor [place], [place] | [phone] | right | | | | [address] [...] PM PDT [facility] Progress Note 10/14/2018 68 y.o. 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 Juaquin Michael ([facility] [place], [place]) for YAG capsuloto my Call for decreased [...] Hx Examination: See Ophthalmology Module Attestations: The ophthalmology technician, under the supervision of the physician, [...] Performed At | + + + | Bench Hand | [facility] | | DocumentationRight EyeQuality: good Central macular thickness: | [facility] | | 241 Segmentation: accurate Additional information: ALANNA Left | | | EyeQuality: good Central macular thickness: 267 Segmentation: | | | accurate Additional information: LAANNA Provider DocumentationRight | | | EyeContour: unchanged [...] | + + + + + | [facility] | [address] | [place] [address] | | | RAISA | [place]. | [...]
--- OUTSIDE RECORDS SUMMARY | ~2019-11-18 | XMS | Encounter Summary ---
Demographics + + + | Address | [address] | | | [place] [address] | + + + | Home Phone | | + + + | Preferred Language | Unknown | + + + | Marital Status | | + + + | Hinduism Affiliation | Unknown | + + + | Race | White | + + + | Ethnic Group | Not or | + + + Author + + + | Author | [facility] | + + + | Organization | [facility] | + + + | Address | Unknown | + + + | Phone | Unavailable | + + + Support + + + + + | Name | Relationship | Address | Phone | + + + + + | Bruce Moscoso | ALEXANDER | [address] | | | | | [place] | | | | | [address] | | + + + + + Care Team Providers + +------+ + | Care Animal Rehabilitator Name | Role | Phone | + +------+ + | Alvin Alejandre MD | PCP | | + +------+ + Reason for Visit + + + | Reason | Comments | + + + | Progress Report | | + + + Encounter Details +--------+ + + + + | Date | Type | Department | Care Team | Description | +--------+ + + + + | 09/19/ | Documentati | [facility] | Taya Muller, | Progress Report | | 2019 | on | [facility] at | [address] | | | | | [address] | [address] | | | | | [address] | [place], [place] | | | | | Eye [place], [facility] | [address] | | | | | floor [place], [place] | [phone] | | | | | [address] | | | +--------+ + + + [...] + + documented as of this encounter Plan of Treatment Not on filedocumented as of this encounter Visit Diagnoses Not on filedocumented in this encounter"
--- OUTSIDE RECORDS SUMMARY | ~2019-11-18 | XMS | Clinical Summary ---
Demographics + + + | Address | [address] | | | [place] [address] | + + + | Home Phone | | + + + | Preferred Language | Unknown | + + + | Marital Status | | + + + | Quaker Affiliation | Unknown | + + + | Race | White | + + + | Ethnic Group | Not or | + + + Author + + + | Author | [facility] | + + + | Organization | [facility] | + + + | Address | Unknown | + + + | Phone | Unavailable | + + + Support + + + + + | Name | Relationship | Address | Phone | + + + + + | Bruce Moscoso | ECON | [address] | | | | | [place] | | | | | [address] | | + + + + + Care Team Providers + +------+ + | Care Department Specialist Name | Role | Phone | + +------+ + | Alvin Alejandre MD | PCP | | + +------+ + Source Comments [facility] is fully live on both [facility] and [facility] InPatient.[facility] Allergies + + + + + [...] up with Dr. Juaquin Michael | | ([facility]) for YAG capsulotomy | + + + [...] | | | | | | | [address] | | + +--------+ +--------+ + +--------+ | MODA MEDICARE | MODA | xxxxxxxxx | 04/15/19 | [phone] | [address] | [address] | | SUPPLEMENT | MEDICA | | 17-Pre | 4 | [id number] | | | | RE | | sent | | [place], | | | | SUPPLE | | | | [place] [address] | | | | MENT | | [...] | 1950 | [phone] | [place] [address] | | | renetta | | | 1 (Home) | | + +--------+ +--------+ + +"
--- OUTSIDE RECORDS SUMMARY | ~2019-11-18 | XMS | Encounter Summary ---
Demographics + + + | Address | [address] | | | [place] [address] | + + + | Home Phone | | + + + | Preferred Language | Unknown | + + + | Marital Status | | + + + | Cheondoism Affiliation | Unknown | + + + | Race | White | + + + | Ethnic Group | Not or | + + + Author + + + | Author | [facility] | + + + | Organization | [facility] | + + + | Address | Unknown | + + + | Phone | Unavailable | + + + Support + + + + + | Name | Relationship | Address | Phone | + + + + + | Bruce Moscoso | ALEXANDER | [address] | | | | | [place] | | | | | [address] | | + + + + + Care Team Providers + +------+ + | Care Cartridge Feeder Name | Role | Phone | + [...] | | | | | | | [address] | | | | | | | [address] | | | | | | | [place] | | | | | | | [place], [place] | | | | | | | [address] | | | | | | | Phone: | | | | | | | [phone] | | | | | | | Fax: | | | | | | | [phone] | +--------+--------+ + + + + Encounter Details +--------+---------+ + + + | Date | Type | Department | Care Team | Description | +--------+---------+ + + + | 08/20/ | Office | [facility] | Yohana Taya, | Macular hole, right | | 2018 | Visit | [facility] at | [address] | eye (Primary Dx); | | | | [address] | [address] | History of | | | | [address] | [place], [place] | vitrectomy | | | | Eye [place], [facility] | [address] | | | | | floor [place], [place] | [phone] | | | | | [address] | [...] might be different from th e original. [facility] Progress Note 08/20/2017 67 y.o. female [...] file Examination: See Ophthalmology Module Attestations: The order entry technician, under the supervision of the physician, [...] Performed At | + + + | Tax Compliance Agent | [facility] | | DocumentationRight EyeQuality: [...] | + + + + + | [facility] | [address] | [place] [address] | | | INSTITUTE | [place]. | [...]
--- OUTSIDE RECORDS SUMMARY | ~2019-11-18 | XMS | Encounter Summary ---
Demographics + + + | Address | [address] | | | [place] [address] | + + + | Home Phone | | + + + | Preferred Language | Unknown | + + + | Marital Status | | + + + | Islam Affiliation | Unknown | + + + | Race | White | + + + | Ethnic Group | Not or | + + + Author + + + | Organization | Unknown | + + + | Address | Unknown | + + + | Phone | Unavailable | + + + Support + + + + + | Name | Relationship | Address | Phone | + + + + + | Bruce Moscoso | ALEXANDER | [address] | | | | | [place] | | | | | [address] | | + + + + + Care Team Providers + +------+ + | Care Graphics Programmer Name | Role | Phone | + +------+ + | Alvin Alejandre MD | PCP | | + +------+ + Encounter Details +--------+--------+ + + + | Date | Type | Department | Care Team | Description | +--------+--------+ + + + | 10/14/ | Travel | | | | | 2019 | | | | | +--------+--------+ + + + Social History + +-------+ [...]
--- OUTSIDE RECORDS SUMMARY | ~2019-11-18 | XMS | Encounter Summary ---
Demographics + + + | Address | [address] | | | [place] [address] | + + + | Home Phone | | + + + | Preferred Language | Unknown | + + + | Marital Status | | + + + | Zoroastrian Affiliation | Unknown | + + + | Race | White | + + + | Ethnic Group | Not or | + + + Author + + + | Author | [facility] | + + + | Organization | [facility] | + + + | Address | Unknown | + + + | Phone | Unavailable | + + + Support + + + + + | Name | Relationship | Address | Phone | + + + + + | Bruce Moscoso | ALEXANDER | [address] | | | | | [place] | | | | | [address] | | + + + + + Care Team Providers + +------+ + | Care City Editor Name | Role | Phone | + [...] Report | | 2019 | on | [facility] at | [address] | | | | | [address] | [address] | | | | | [address] | [place], [place] | | | | | [facility] | [address] | | | | | floor [place], [place] | [phone] | | | | | [phone] | [...]
--- OUTSIDE RECORDS SUMMARY | ~2019-11-18 | XMS | Encounter Summary ---
Demographics + + + | Address | [address] | | | [place] [address] | + + + | Home Phone | | + + + | Preferred Language | Unknown | + + + | Marital Status | | + + + | Jewish Affiliation | Unknown | + + + [...] + + + | Bruce Moscoso | ALEXNADER | [address] | | | | | [place] | | | | | [address] | | + + + + + Care Team Providers + +------+ + | Care Pulper Operator Name | Role | Phone | [...]
[2019-11-18] MEDS ORDERED: ASPIRIN81 MG PO (14:34)
== END 2019-11-18 15:49 | disposition home or self-care (01) ==
LOC: ED 14:22
DX: R60.0 Localized edema (principal); Z88.2 Allergy status to sulfonamides; Z79.899 Other long term (current) drug therapy; Z79.82 Long term (current) use of aspirin; Z96.651 Presence of right artificial knee joint
CPT/HCPCS: 93971; 99284-25